=== PATIENT | male | born 1970 | race Two or more races ===

== ENCOUNTER → 2021-03-05 08:41 | Outpatient (BNVA) | payer OTHER, SELFPAY | PROVIDERS: PCP Internal Medicine; Visit Provider Hospitalist | DX: G47.33 Obstructive sleep apnea (adult) (pediatric) (principal); J45.40 Moderate persistent asthma, uncomplicated; F17.200 Nicotine dependence, unspecified, uncomplicated; Z71.6 Tobacco abuse counseling; Z79.899 Other long term (current) drug therapy | CPT/HCPCS: 99202 ==

== ENCOUNTER 2021-03-26 10:32 | Outpatient (REF) | payer OTHER, SELFPAY ==
--- NOTE | 2021-03-26 12:06 | PFT_ITS ---
Forced vital capacity is moderately reduced. FEV1 and [id number] are normal. MVV moderately reduced. Post bronchodilator therapy, there is no change. Total lung capacity and residual volume are slightly increased, probably due to technical reason. Diffusion capacity was not performed because the patient was unable to perform adequate maneuvers. CONCLUSION: There is no evidence of any significant obstructive airway disorder or restrictive disorder. No response to bronchodilator therapy. * There seems to be some technical issue Clinical correlation is recommended. Tacos Madison MD MSB/MODL / [id number] MTDD
== END 2021-03-26 10:33 | disposition home or self-care (01) ==
LOC: HO.RESP 10:32
PROVIDERS: PCP Internal Medicine; Visit Provider Hospitalist
DX: J45.40 Moderate persistent asthma, uncomplicated (principal); G47.33 Obstructive sleep apnea (adult) (pediatric); F17.210 Nicotine dependence, cigarettes, uncomplicated
CPT/HCPCS: 94010

== ENCOUNTER → 2021-03-31 10:44 | Outpatient (REF) | payer OTHER, SELFPAY | LOC: HO.SL 10:44 | PROVIDERS: PCP Internal Medicine; Visit Provider Hospitalist | DX: G47.33 Obstructive sleep apnea (adult) (pediatric) (principal); J45.40 Moderate persistent asthma, uncomplicated | CPT/HCPCS: 95806 ==

== ENCOUNTER → 2021-04-17 10:24 | Outpatient (BNVA) | payer OTHER, SELFPAY | PROVIDERS: PCP Internal Medicine; Visit Provider Hospitalist | DX: J45.40 Moderate persistent asthma, uncomplicated (principal); R40.0 Somnolence; G47.33 Obstructive sleep apnea (adult) (pediatric); R74.01 Elevation of levels of liver transaminase levels; E78.1 Pure hyperglyceridemia; E66.9 Obesity, unspecified; Z68.32 Body mass index [BMI] 32.0-32.9, adult; F17.210 Nicotine dependence, cigarettes, uncomplicated; F41.8 Other specified anxiety disorders | CPT/HCPCS: 99212 ==

== ENCOUNTER 2021-05-22 06:41 | Outpatient (REF) | payer OTHER, SELFPAY ==
[2021-05-22 12:24] LABS: Alanine Aminotransferase 46 U/L (0-40); Albumin Level 4.1 g/dL (3.5-5.0); Alkaline Phosphatase 58 U/L (39-117); Anion Gap 13 (12-20); Aspartate Amino Transferase 19 U/L (5-37); Bilirubin Total 0.5 mg/dL (0.0-1.0); Blood Urea Nitrogen 20 mg/dL (9-16); Calcium 9.3 mg/dL (8.4-10.2); Carbon Dioxide 25 mmol/L (22-29); Chloride 105 mmol/L (96-108); Cholesterol 169 mg/dL; Estimated Glomerular Filt Rate > 60; Glucose Fasting 120 mg/dL (60-99); HDL Cholesterol 35 mg/dL; LDL Cholesterol Calculated 95 mg/dl; Potassium 4.1 mmol/L (3.3-5.1); Sodium 139 mmol/L (135-145); Total Protein 7.3 g/dL (6.5-8.0); Triglycerides 197 mg/dL
== END 2021-05-22 06:42 | disposition home or self-care (01) ==
LOC: HO.HMGCLDS 06:41
PROVIDERS: PCP Internal Medicine; Visit Provider Internal Medicine
DX: E78.1 Pure hyperglyceridemia (principal); F41.8 Other specified anxiety disorders; J45.40 Moderate persistent asthma, uncomplicated; R74.8 Abnormal levels of other serum enzymes
CPT/HCPCS: 36415; 80053; 80061

== ENCOUNTER → 2022-04-09 14:32 | Outpatient (BNVA) | payer OTHER, SELFPAY | PROVIDERS: PCP Internal Medicine; Visit Provider Hospitalist | DX: J45.40 Moderate persistent asthma, uncomplicated (principal); G47.33 Obstructive sleep apnea (adult) (pediatric) | CPT/HCPCS: 99212 ==

== ENCOUNTER 2022-05-22 14:09 | Outpatient (REF) | payer OTHER, SELFPAY ==
--- NOTE | ~2022-05-22 | CT_ITS ---
EXAMINATION: CT CHEST SCREENING CLINICAL INFORMATION: Current smoker. 43 pack-year history. COMPARISON: None. TECHNIQUE: Multidetector volumetric CT imaging of the chest is performed without contrast using low dose technique. Additional 2D coronal and sagittal reformatted images and axial 3D maximum intensity projection (MIP) images are generated on the CT workstation. This CT examination was performed using dose optimization techniques as appropriate, variously including the following: *Automated exposure control *Adjustment of mA and/or kV according to patient size (this includes techniques or standardized protocols for targeted exams where dose is matched to indication/reason for exam; i.e. extremities or head) *Use of iterative reconstruction technique DLP: 57 mGy-cm FINDINGS: LUNGS: The lung volumes are low. There is elevation of the right hemidiaphragm. The lungs are clear. No endobronchial or endotracheal lesion. MEDIASTINUM: Small mediastinal lymph nodes. No enlarged lymph nodes. Normal heart size. No pericardial effusion. CORONARY ARTERY CALCIFICATION: None visualized on this study. PLEURA: There is no pleural effusion. No pleural mass or thickening. AXILLA: No lymphadenopathy. UPPER ABDOMEN: Diverticulosis of the colon. OSSEOUS STRUCTURES: Degenerative changes of the spine. CT/CT lung screening IMPRESSION: Unremarkable examination. ASSESSMENT: Lung-RADS category 1: Negative RECOMMENDATION: Annual low-dose chest CT follow-up recommended.
== END 2022-05-22 14:10 | disposition home or self-care (01) ==
LOC: HO.CT 14:09
PROVIDERS: Visit Provider Physician Assistant Medical
DX: Z12.2 Encounter for screening for malignant neoplasm of respiratory organs (principal); F17.210 Nicotine dependence, cigarettes, uncomplicated
CPT/HCPCS: 71271; G0296

== ENCOUNTER 2022-10-17 09:05 | Outpatient (REF) | payer OTHER, SELFPAY ==
[2022-10-17 12:02] LABS: Estimated Average Glucose 117 mg/dL; Hemoglobin A1c % 5.7 %
[2022-10-17 12:27] LABS: Alanine Aminotransferase 21 U/L (0-40); Albumin Level 4.3 g/dL (3.5-5.0); Alkaline Phosphatase 55 U/L (39-117); Anion Gap 13 (12-20); Aspartate Amino Transferase 13 U/L (5-37); Bilirubin Total 0.8 mg/dL (0.0-1.0); Blood Urea Nitrogen 21 mg/dL (9-16); Calcium 9.2 mg/dL (8.4-10.2); Carbon Dioxide 26 mmol/L (22-29); Chloride 107 mmol/L (96-108); Cholesterol 167 mg/dL; Estimated Glomerular Filt Rate > 60; Glucose Fasting 97 mg/dL (60-99); HDL Cholesterol 37 mg/dL; LDL Cholesterol Calculated 111 mg/dl; Sodium 142 mmol/L (135-145); Total Protein 6.8 g/dL (6.5-8.0); Triglycerides 99 mg/dL
== END 2022-10-17 09:06 | disposition home or self-care (01) ==
LOC: HO.HMGCLDS 09:05
PROVIDERS: PCP Internal Medicine; Visit Provider Internal Medicine
DX: E78.1 Pure hyperglyceridemia (principal); F41.8 Other specified anxiety disorders; G47.33 Obstructive sleep apnea (adult) (pediatric); J45.40 Moderate persistent asthma, uncomplicated; R73.01 Impaired fasting glucose
CPT/HCPCS: 36415; 80053; 80061; 83036

== ENCOUNTER → 2022-12-09 15:06 | Outpatient (BNVA) | payer OTHER, SELFPAY | PROVIDERS: PCP Internal Medicine; Visit Provider Nurse Practitioner | DX: Z01.818 Encounter for other preprocedural examination (principal); K59.00 Constipation, unspecified; J45.40 Moderate persistent asthma, uncomplicated; G47.33 Obstructive sleep apnea (adult) (pediatric); F17.210 Nicotine dependence, cigarettes, uncomplicated | CPT/HCPCS: 99202 ==

== ENCOUNTER → 2022-12-25 15:18 | Outpatient (BNVA) | payer OTHER, SELFPAY | PROVIDERS: PCP Internal Medicine; Visit Provider Hospitalist | DX: J45.40 Moderate persistent asthma, uncomplicated (principal); G47.33 Obstructive sleep apnea (adult) (pediatric) | CPT/HCPCS: 99212 ==

== ENCOUNTER → 2023-01-06 14:44 | Outpatient (BNVA) | payer OTHER, SELFPAY | PROVIDERS: PCP Internal Medicine; Visit Provider Nurse Practitioner | DX: K59.00 Constipation, unspecified (principal) | CPT/HCPCS: 99212 ==

== ENCOUNTER 2023-02-05 14:54 | Outpatient (AMB) | payer OTHER, SELFPAY ==
--- NOTE | 2023-02-05 14:55 | MHC.OFFVIS ---
Intake Vital Signs 02/05/23 14:57 Height 5 ft 6 in Weight 185 lb 10.067 oz BMI 30.0 BP 120/78 Blood Pressure Location Lt brachial Position Sitting Pulse 69 Intake Visit Reasons: 4 weeks follow up constipation Intake Note: Patient presents to in office visit today as a 4 weeks follow up. CC: Patient report he has been doing better. Denies other GI symptoms. Auto Specialty Services Manager Required: Yes Auto Specialty Services Manager Name: Accompanied by: Spouse Allergies No Known Allergies [No Known Allergies*] Allergy (Verified 02/05/23 15:01) HPI 4 weeks follow up constipation HPI Details Assessment & Plan (1) Pre-op examination: ?Code(s): Z01.818 - Encounter for other preprocedural examination ?Plan: [place] # interprets per pt request This is his first colonoscopy. He suffers CIC and has a lot of flatulence , but no upper GI problems. His asthma is well controlled and he has ERMIAS, he has a transient cardiac murmur but no other problems. He has not experience with anesthesia or sedation. No ID problems. There is no known FHX of crc or polyps, but he does not see much of his family. (2) Constipation: ?Code(s): K59.00 - Constipation, unspecified (3) Moderate persistent asthma: ?Code(s): J45.40 - Moderate persistent asthma, uncomplicated ?Qualifiers: ?Asthma complication type:?uncomplicated? Qualified Code(s):?J45.40 - Moderate persistent asthma, uncomplicated (4) ERMIAS (obstructive sleep apnea): ?Code(s): G47.33 - Obstructive sleep apnea (adult) (pediatric) (5) Nicotine dependence, cigarettes, uncomplicated: ?Comment: (currenr smoker - onset 16yo, 1/2-3/4ppd x 35yrs, 20pyh) ?Code(s): F17.210 - Nicotine dependence, cigarettes, uncomplicated ? ? ? Medications: New peg 3350-electroly osman [id number] -5.86 gram (Golyt anthony) ?? until feca l effluent is wil r; do not exceed a total volume of 2 ,000 mL 240 mL? PO Q10M 1 day 4,000 mL 0RF Z12.11 - Encounter for screening for malignant neoplas m of colon ? sennosides (senna) 17.2 mg (2 x 8.6 m g) PO BEDTIME 30 d ays 60 caps 3RF co nstipation K59.00 - Constipat ion, unspe COLONOSCOPY Not yet scheduled BIOPSY TODAY'S VISIT [place] # interprets per pt request He feels that the 2 tabs a center now controlling his constipation well and he does not need any further measures. He is happy with this for his GI regimen. This is also controlled his flatulence well. They have not yet been contacted schedule a colonoscopy but this is in the normal scheduling range. Return office visit in 6 months and of course again after the colonoscopy. [facility] Medical History Depression with anxiety Elevated liver enzymes Hypertriglyceridemia Impaired fasting glucose Intermittent left-sided chest pain Moderate persistent asthma Nicotine dependence, cigarettes, uncomplicated ERMIAS (obstructive sleep apnea) Surgical History No pertinent past surgical history Family History Sister Mental health disorder Social History Housing: Apartment Patient Tobacco Use Status: Current everyday Tobacco user Tobacco use type: Cigarette Years Smoked: (onset 16yo, 1/2-3/4ppd x 35yrs, 20pyh) e-Cigarette/Vaping Use: Never Used service: No Current occupational status: employed 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 Cognitive needs: No Hearing needs: No Vision needs: No Review of Systems Const Denies fatigue, Denies fever(s), Denies night sweats, Denies poor appetite and Denies weight loss ENT Reports Normal hearing present, Denies dental pain, Denies dysphagia, Denies hearing loss, Denies mouth pain, Denies odynophagia, Denies throat swelling, Denies tongue swelling and Reports other (Dentition adequate) Card Reports no additional complaints Resp Reports no additional complaints GI Denies abdominal pain, Denies melena, Reports bloating, Denies hematochezia, Reports constipation, Denies GI cramping, Denies dysphagia, Denies excessive flatus, Denies early satiety, Denies heartburn, Denies diarrhea, Denies nausea, Denies odynophagia, Denies vomiting and Denies hematemesis Skin/Breast Denies pruritus, Denies lesions, Denies rash and Denies jaundice Neuro Reports Normal hearing present and Denies Abnormal speech present Endo Denies fatigue Aller/Immun Denies throat swelling and Denies tongue swelling Physical Exam Vital Signs: Last Vital Signs Pulse 69 02/05/23 14:57 BP 120/78 02/05/23 14:57 BMI result Body Mass Index 30.0 Const General: cooperative, no acute distress, well developed and well groomed Nutritional Appearance: well nourished and obese centrally obese Orientation/consciousness: oriented to person, oriented to place and oriented to time Limitations: language barrier HEENT Head: Yes normocephalic and Yes atraumatic Eyes General: appearance normal, both eyes and all related structures Pupils: Equal, round and reactive pupils present Neck Neck: Yes normal visual inspection and Yes no lymphadenopathy Thyroid: Thyroid normal Resp Effort & Inspection: normal respiratory effort and able to speak in complete sentences Auscultation: clear to auscultation bilaterally Cardio Rate: regular rate Rhythm: regular rhythm Heart sounds: Normal, physiologic split S2 sound present Peripheral pulses: radial pulses present and posterior tibial pulses present GI Inspection: No distended, No Abdominal panniculus present and Yes obesity Palpation (GI): Soft to palpation, nontender, no guarding, not rigid and No hepatosplenomegaly present Percussion: Yes normal to percussion Auscultation: normal bowel sounds Rectal Exam - Male: Yes deferred Skin General skin exam: no rashes or lesions noted, turgor normal, skin not dry, no jaundice, No spider nevi and no striae Rashes: no rashes Nails: normal Neuro General: oriented to person, oriented to place and oriented to time Cranial nerves: Yes Equal, round and reactive pupils present and Yes Normal hearing present Speech: No Abnormal speech present Extrem General: Yes normal to inspection, No clubbing, No cyanosis and No edema Psych Appearance: grossly normal and well kempt Mental Status: mental status grossly normal Speech and movement: Normal speech and movement present Affect: normal affect Attitude: cooperative Thought process: Normal thought process present and not confabulating Thought content: Normal thought content present Insight: Limited insight present (Psych) Judgement: Limited judgement present (Psych) Assessment & Plan Assessment & Plan (1) Constipation: Code(s): K59.00 - Constipation, unspecified Plan: [place] # interprets per pt request He feels that the 2 tabs a center now controlling his constipation well and he does not need any further measures. He is happy with this for his GI regimen. This is also controlled his flatulence well. They have not yet been contacted schedule a colonoscopy but this is in the normal scheduling range. Return office visit in 6 months and of course again after the colonoscopy. COLONOSCOPY Not yet scheduled BIOPSY Medications: Refilled sennosides (senna) 17.2 mg (2 x 8.6 mg) PO BEDTIME 30 days 60 caps 6RF constipation K59.00 - Constipation, unspecified Quality Reporting (2019) Adult ([facility] 138/08/26/68) Smoking risk assessment performed?: Yes Patient Tobacco Use Status: Current everyday Tobacco user Coding Level of Care Code Est Pt Level 3 (75110) Diagnoses Constipation K59.00
[2023-02-05 14:57] VITALS: BP 120/78; PULSE 69
== END 2023-02-05 15:09 | disposition home or self-care (01) ==
PROVIDERS: PCP Internal Medicine; Visit Provider Nurse Practitioner
DX: K59.00 Constipation, unspecified (principal)
CPT/HCPCS: 99213

== ENCOUNTER → 2023-02-05 14:54 | Outpatient (BNVA) | payer OTHER, SELFPAY | PROVIDERS: PCP Internal Medicine; Visit Provider Nurse Practitioner | DX: K59.00 Constipation, unspecified (principal) | CPT/HCPCS: 99212 ==

== ENCOUNTER 2023-08-10 14:32 | Outpatient (AMB) | payer OTHER, SELFPAY ==
--- NOTE | 2023-08-10 14:35 | A.OFFVIS_ITS ---
Intake Vital Signs 08/10/23 14:36 Height 5 ft 6 in Weight 188 lb 11.451 oz BMI 30.5 BP 131/80 Blood Pressure Location Lt brachial Position Sitting Pulse 72 Intake Visit Reasons: 6 month fu Intake Note: Patient presents to in office visit today in 6 months follow up of constipation. CC: Patient states that he still waiting to be scheduled for colonoscopy. Denies other GI symptoms today. Python Web Developer Required: No Accompanied by: Spouse Allergies No Known Allergies [No Known Allergies*] Allergy (Verified 08/10/23 14:39) HPI 6 month fu HPI Details Assessment & Plan (1) Constipation: Code(s): K59.00 - Constipation, unspecified Plan: [place] # interprets per pt request He feels that the 2 tabs a center now controlling his constipation well and he does not need any further measures. He is happy with this for his GI regimen. This is also controlled his flatulence well. They have not yet been contacted schedule a colonoscopy but this is in the normal scheduling range. Return office visit in 6 months and of course again after the colonoscopy. Medications: Refilled sennosides (senna) 17.2 mg (2 x 8.6 m g) PO BEDTIME 30 d ays 60 caps 6RF co nstipation K59.00 - Constipat ion, unspecified COLONOSCOPY Not yet scheduled it was ordered 12/2022? Did note get sent BIOPSY TODAY'S VISIT [place] # interprets per pt request They have not yet heard re: colonoscopy. I walk them down to our schedulers office that this could be taking care of promptly. He continues to do well on the senna and satisfied with the GI regimen. Return office visit in 6 months and of course after the colonoscopy. [facility] Medical History Pre-op examination Impaired fasting glucose Nicotine dependence, cigarettes, uncomplicated Elevated liver enzymes Moderate persistent asthma Hypertriglyceridemia Depression with anxiety ERMIAS (obstructive sleep apnea) Intermittent left-sided chest pain Surgical History No pertinent past surgical history Family History Sister Mental health disorder Social History Housing: Apartment Patient Tobacco Use Status: Current everyday Tobacco user Tobacco use type: Cigarette Years Smoked: (onset 16yo, 1/2-3/4ppd x 35yrs, 20pyh) e-Cigarette/Vaping Use: Never Used service: No Current occupational status: employed 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 Cognitive needs: No Hearing needs: No Vision needs: No Review of Systems Const Denies fatigue, Denies fever(s), Denies night sweats, Denies poor appetite and Denies weight loss ENT Reports Normal hearing present, Denies dental pain, Denies dysphagia, Denies hearing loss, Denies mouth pain, Denies odynophagia, Denies throat swelling, Denies tongue swelling and Reports other (Dentition adequate) Card Reports no additional complaints Resp Reports no additional complaints GI Details: Denies abdominal pain, Denies melena, Denies bloating, Denies hematochezia, Reports constipation, Denies GI cramping, Denies dysphagia, Denies excessive flatus, Denies early satiety, Denies heartburn, Denies diarrhea, Denies nausea, Denies odynophagia, Denies vomiting and Denies hematemesis Skin/Breast Denies pruritus, Denies lesions, Denies rash and Denies jaundice Neuro Reports Normal hearing present and Denies Abnormal speech present Endo Denies fatigue Aller/Immun Denies throat swelling and Denies tongue swelling Physical Exam Vital Signs: Last Vital Signs Pulse 72 08/10/23 14:36 BP 131/80 08/10/23 14:36 BMI result Body Mass Index 30.5 Const General: cooperative, no acute distress, well developed and well groomed Nutritional Appearance: well nourished and obese Orientation/consciousness: oriented to person, oriented to place and oriented to time Limitations: language barrier HEENT Head: Yes normocephalic and Yes atraumatic Eyes General: appearance normal, both eyes and all related structures Pupils: Equal, round and reactive pupils present Neck Neck: Yes normal visual inspection and Yes no lymphadenopathy Thyroid: Thyroid normal Resp Effort & Inspection: normal respiratory effort and able to speak in complete sentences Auscultation: clear to auscultation bilaterally Cardio Rate: regular rate Rhythm: regular rhythm Heart sounds: Normal, physiologic split S2 sound present Peripheral pulses: radial pulses present and posterior tibial pulses present GI Inspection: No distended, No Abdominal panniculus present and Yes obesity Palpation (GI): Soft to palpation, nontender, no guarding, not rigid and No hepatosplenomegaly present Percussion: Yes normal to percussion Auscultation: normal bowel sounds Rectal Exam - Male: Yes deferred Skin General skin exam: no rashes or lesions noted, turgor normal, skin not dry, no jaundice, No spider nevi and no striae Rashes: no rashes Nails: normal Neuro General: oriented to person, oriented to place and oriented to time Cranial nerves: Yes Equal, round and reactive pupils present and Yes Normal hearing present Speech: No Abnormal speech present Extrem General: Yes normal to inspection, No clubbing, No cyanosis and No edema Psych Appearance: grossly normal and well kempt Mental Status: mental status grossly normal Speech and movement: Normal speech and movement present Affect: normal affect Attitude: cooperative Thought process: Normal thought process present and not confabulating Thought content: Normal thought content present Insight: Fair insight present (Psych) and Limited insight present (Psych) Judgement: Fair judgement present (Psych) and Limited judgement present (Psych) Assessment & Plan Assessment & Plan (1) Constipation: Code(s): K59.00 - Constipation, unspecified Plan [place] # interprets per pt request They have not yet heard re: colonoscopy. I walk them down to our schedulers office that this could be taking care of promptly. He continues to do well on the senna and satisfied with the GI regimen. Return office visit in 6 months and of course after the colonoscopy. COLONOSCOPY Not yet scheduled it was ordered 12/2022? Did note get sent BIOPSY Medications: Refilled sennosides (senna) 17.2 mg (2 x 8.6 mg) PO BEDTIME 30 days 60 caps 6RF constipation K59.00 - Constipation, unspecified Quality Reporting (2019) Adult ([facility] 138/08/26/68) Smoking risk assessment performed?: Yes Patient Tobacco Use Status: Current everyday Tobacco user Coding Level of Care Code Est Pt Level 3 (13612) Diagnoses Constipation K59.00
[2023-08-10 14:36] VITALS: BP 131/80; PULSE 72; BMI 30.5
== END 2023-08-10 15:00 | disposition home or self-care (01) ==
PROVIDERS: PCP Internal Medicine; Visit Provider Nurse Practitioner
DX: K59.00 Constipation, unspecified (principal)
CPT/HCPCS: 99213

== ENCOUNTER → 2023-08-10 14:32 | Outpatient (BNVA) | payer OTHER, SELFPAY | PROVIDERS: PCP Internal Medicine; Visit Provider Nurse Practitioner | DX: K59.00 Constipation, unspecified (principal) | CPT/HCPCS: 99212 ==

== ENCOUNTER 2023-11-22 13:14 | Outpatient (AMB) | payer OTHER, SELFPAY ==
[2023-11-22 13:22] VITALS: BP 126/70; PULSE 70; O2SAT 96; BMI 29.1
--- NOTE | 2023-11-22 13:22 | MHC.PC.OV ---
Vital Signs 11/22/23 13:22 Height 5 ft 6 in Weight 180 lb 2 oz BMI 29.1 BP 126/70 Blood Pressure Location Rt brachial Position Sitting Pulse 70 Pulse Source Pulse Oximeter Pulse Oximetry (%) 96 Oxygen Delivery Method Room Air Intake Visit Reasons: PE Intake Note: Pt is here today for his annual physical. Last flu shot 05/23/23 Pt has not done colonoscopy. Allergies No Known Allergies [No Known Allergies*] Allergy (Verified 11/22/23 14:24) Medication List - Last Reconciled 11/22/23 by Sharon Schmitt MD escitalopram oxalate 10 mg PO DAILY sennosides (senna) 17.2 mg (2 x 8.6 mg) PO BEDTIME 30 days Tobacco use date assessed: 11/22/23 Dental Screening Dental Screen Date: 11/22/23 Did you have a dental visit in the last 12 months?: No Did you have a dental problem in the last 6 months where you did not have access to dental care?: No Was dental information given to patient?: Patient has dentist HPI PE HPI Details 52-year-old male with history of hypertriglyceridemia, moderate persistent asthma, obstructive sleep apnea on CPAP, depression anxiety controlled on escitalopram 10 mg daily, here today for his physical exam. Continues to smoke cigarettes, with no desire to quit at present time. He was being seen by Pulmonary Dr. Pires and prescribed Symbicort, but patient has not been using it, stating that he does not need it. He is overdue for a screening colonoscopy as well as his yearly lung cancer screening, last screening was done in 2021. [facility] Medical History (Updated 11/22/23 @ 14:25 by Sharon Schmitt MD) Impaired fasting glucose Nicotine dependence, cigarettes, uncomplicated Elevated liver enzymes Moderate persistent asthma Hypertriglyceridemia Depression with anxiety ERMIAS (obstructive sleep apnea) Surgical History No pertinent past surgical history Family History Sister Mental health disorder Social History Housing: Apartment Patient Tobacco Use Status: Current everyday Tobacco user Tobacco use type: Cigarette Years Smoked: (onset 16yo, 1/2-3/4ppd x 35yrs, 20pyh) e-Cigarette/Vaping Use: Never Used service: No Current occupational status: employed 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 1. Little interest or pleasure in doing things: not at all 2. Feeling down, depressed, or hopeless: several days 3. Trouble falling or staying asleep, or sleeping too much: not at all 4. Feeling tired or having little energy: several days 5. Poor appetite or overeating: not at all 6. Feeling bad about yourself - or that you are a failure or have let yourself or your family down: not at all 7. Trouble concentrating on things, such as reading the newspaper or watching television: not at all 8. Moving or speaking so slowly that other people could have noticed. Or the opposite - being so fidgety or restless that you have been moving around a lot more than usual: not at all 9. Thoughts that you would be better off or of hurting yourself in some way: not at all Total score: 2 Depression Screening Interpretation: Positive (Currently on escitalopram, requesting referral for counseling) Depression Screening Follow-up: Existing condition, In treatment and Community Mental Health Worker F/U Depression Screening Done: Yes 09398 - PHQ-9 Billing: Yes Source: Developed by Drs. Ravinder Perry, Zeinab Otero, Ac Freitas and colleagues, with an educational judah from [employer]. Thrive Questionnaire Date Thrive assessed: 11/22/23 I am a: Patient What is your living situation today?: I have a steady place to live Within the past 12 months, did the food you bought not last and you didn't have the money to get more?: Never true Within the past 12 months, did you worry whether your food would run out before you got money to buy more?: Never true Do you have trouble paying for medicines?: No Do you have trouble getting transportation to medical appointments?: No Do you have trouble paying your heating and electricity bill?: No Do you have trouble taking care of your child, family member or friend?: No Do you have trouble with day-to-day activities such as bathing, preparing meals, shopping, managing finances, etc.?: No Are you currently unemployed and looking for a job?: No Are you interested in more education?: No THRIVE Score: 0 AUDIT C Alcohol Use Questionnaire (AUDIT-C) 1. How often do you have a drink containing alcohol?: 2-4 times a month (An occasional 6 pack during the weekend) 2. How many drinks containing alcohol do you have on a typical day when you are drinking?: 5 or 6 3. How often do you have six or more drinks on one occasion?: Never Total Score: 4 Score Reviewed/Action Taken: Yes (Patient counseled to cut back on his alcohol intake) ANNITA-7 AMB Questionnaire ANNITA-7 Date ANNITA - 7 assessed: 11/22/23 Feeling nervous, anxious, or on edge: 0 = Not at all Not being able to stop or control worryin = Not at all Worrying too much about different things: 1 = Several days Trouble relaxin = Not at all Being so restless that it is hard to sit still: 0 = Not at all Becoming easily annoyed or irritable: 0 = Not at all Feeling afraid as if something awful might happen: 0 = Not at all Total ANNITA-7 score (0-4 normal; 5-9 mild; 10-14 moderate; 15-21 severe): 1 Source: Developed by Drs. Ravinder Perry, Zienab Otero, Ac Freitas and colleagues, with an educational judah from [employer]. ANNITA-7 Assessment Billing ANNITA-7 Assessment Tool: ANNITA-7 Assessment 60585 Review of Systems Const Denies fever(s), Denies night sweats, Denies poor appetite and Reports weight loss Eyes Denies change in vision ENT Denies dysphagia, Denies hearing loss, Denies mouth pain, Denies odynophagia, Denies throat swelling and Denies tongue swelling Card Denies chest pain, Denies chest pain with activity, Denies rapid heart rate, Denies irregular heart rhythm, Denies lightheadedness and Denies dyspnea Resp Denies cough and Denies dyspnea GI Details: Denies abdominal pain, Denies melena, Denies bloating, Denies hematochezia, Reports constipation, Denies GI cramping, Denies dysphagia, Denies excessive flatus, Denies early satiety, Denies heartburn, Denies diarrhea, Denies nausea, Denies odynophagia, Denies vomiting and Denies hematemesis Reports no additional complaints Musc Denies arthralgias, Denies joint swelling and Reports stiffness Skin/Breast Denies pruritus, Denies lesions, Denies rash and Denies jaundice Neuro Reports no additional complaints Psych Reports as per HPI Endo Reports no additional complaints Kevin/Lymph Reports no additional complaints Aller/Immun Denies throat swelling and Denies tongue swelling Physical exam (Primary Care) Vital Signs: Last Vital Signs Pulse 70 11/22/23 13:22 BP 126/70 11/22/23 13:22 Pulse Ox 96 11/22/23 13:22 Oxygen Delivery Method Room Air 11/22/23 13:22 BMI result Body Mass Index 29.1 BMI Assessment/Plan discussion: High BMI High, discussed plan: lifestyle, weight reduction, dietary and physical activity Tobacco/Smoking Status: Tobacco use Status Tobacco use date assessed 11/22/23 11/22/23 13:26 Patient Tobacco Use Status Current everyday Tobacco 11/22/23 13:26 Tobacco use type Cigarette 11/22/23 13:26 e-Cigarette/Vaping Use Never Used 11/22/23 13:26 PHQ-9: PHQ-9 Score PHQ-9: Total score 2 11/22/23 15:59 Depression Screening Interpretation: Positive (Currently on escitalopram, requesting referral for counseling) Depression Screening Follow-up: Existing condition, In treatment and Community Mental Health Worker F/U Thrive Assessment: Date of Thrive Assessment Date Thrive assessed 11/22/23 11/22/23 14:44 Const General: cooperative, comfortable and no acute distress Nutritional Appearance: obese Orientation/consciousness: patient oriented x3 Limitations: no limitations HENMT Ears: hearing grossly normal bilaterally General nose exam: Normal external nose present Mouth: Normal oral and palatal mucosa present and moist mucous membranes Eyes General: appearance normal, both eyes and all related structures Neck Neck: Yes full ROM, Yes no lymphadenopathy and Yes supple Resp Auscultation: clear to auscultation bilaterally Cardio Rate: regular rate Rhythm: regular rhythm Heart sounds: S1 normal heart sound present and S2 normal heart sound present GI Inspection: Yes obesity Palpation (GI): Soft to palpation, nontender, no guarding and no masses General: Yes no CVA tenderness Male General Exam: Yes normal external exam, No hernia, No inguinal lymphadenopathy and No Genital lesions present Penis: normal penis, uncircumcised and No Genital lesions present Meatus: meatus normal Scrotum: scrotum normal Testes: no testicular mass and no testicular swelling Back/Spine/Pelvis Back: no CVA tenderness and No back tenderness Skin Other: Skin tags present on right upper eyelid and left lower lid Neuro General: patient oriented x3, gait normal, moves all extremities and no focal motor deficits Extrem General: Yes full ROM, Yes no joint enlargement, Yes no pedal edema, Yes no calf tenderness and Yes normal gait Psych Appearance: grossly normal Mental Status: mental status grossly normal Speech and movement: Normal speech and movement present Affect: normal affect Attitude: cooperative Thought process: Normal thought process present Thought content: Normal thought content present Assessment and Plan Assessment & Plan (1) Annual visit for general adult medical examination with abnormal findings: Code(s): Z00.01 - Encounter for general adult medical examination with abnormal findings Plan: Will check appropriate labs. Recommended dental visit every 6 months and regular eye exams, at least every 2 years, advised to check with his insurance who is covered under his plan. Take adequate calcium in diet and vitamin-D 3 at 2000 IU per cap once a day, in addition to weight-bearing exercises to help maintain good muscle tone and weight control. Instructed to do self testicular exam to check for any mass. Referred to GI Clinic for screening colonoscopy. Has had COVID vaccines in the past but does not want to get the booster, reminded to get his yearly flu shot, up-to-date with his Tdap. (2) Encounter for screening for malignant neoplasm of colon: Code(s): Z12.11 - Encounter for screening for malignant neoplasm of colon Plan: GI consult obtained for colon cancer screen (3) Hypertriglyceridemia: Code(s): E78.1 - Pure hyperglyceridemia Plan: fasting lipid profile ordered reinforced adherence to low-cholesterol diet and regular exercise, at least 30 minutes 3 to 4 times a week. Advised patient to make healthy food choices, eat more fruits, vegetables, whole grains, wild caught fish and low-fat dairy. Limit amount of meat and fried or fatty food products, as well as processed foods and fast foods. (4) Elevated liver enzymes: Code(s): R74.8 - Abnormal levels of other serum enzymes Plan: Comprehensive metabolic panel ordered, advised to cut back on his alcohol intake (5) Impaired fasting glucose: Code(s): R73.01 - Impaired fasting glucose Plan: Your fasting blood sugars were elevated above 100 mg/dL. Impaired glucose metabolism increases the risk for developing diabetes mellitus type 2, as well as heart attack and stroke later on. Lifestyle changes at just weight loss, healthy eating habits, and regular exercise are important, and can prevent the progression to diabetes (6) Nicotine dependence, cigarettes, uncomplicated: Comment: (cory smoker - onset 16yo, 1/2-3/4ppd x 35yrs, 20pyh) Code(s): F17.210 - Nicotine dependence, cigarettes, uncomplicated Plan: Patient strongly advised to stop smoking, as smoking damages blood vessels, degenerative of joints and spine, damage to lungs and heart., predisposes to developing certain cancers like lung, breast, bladder, colon. Recommended to try decreasing cigarette use by 1-2 cigarettes a day. Advised to monitor what triggers are for smoking so that this can be discussed on the next office visit. We can discuss different options to quit smoking when ready. Referred to thoracic surgery for his yearly lung cancer screening (7) Encounter for screening for malignant neoplasm of lung: Code(s): Z12.2 - Encounter for screening for malignant neoplasm of respiratory organs Plan: Referred to thoracic surgery for his yearly lung cancer screen (8) Moderate persistent asthma: Code(s): J45.40 - Moderate persistent asthma, uncomplicated Qualifiers: Asthma complication type: uncomplicated Qualified Code(s): J45.40 - Moderate persistent asthma, uncomplicated Plan: Patient does not use any inhalers, stating he does not need at present time. Strongly encouraged to quit smoking (9) ERMIAS (obstructive sleep apnea): Code(s): G47.33 - Obstructive sleep apnea (adult) (pediatric) Plan: Continued weight loss recommended. (10) Depression with anxiety: Code(s): F41.8 - Other specified anxiety disorders Plan: Continue escitalopram 10 mg daily referral to Megan for assistance in getting patient to be seen by a Swedish-speaking therapist per his request Orders: Orders Lipid Panel 11/22/23 E78.1 - Pure hyperglyceridemia, R73.01 - Impaired fasting glucose, R74.8 - Abnormal levels of other serum enzymes, Z00.01 - Encounter for general adult medical examination with abnormal findings Comprehensive [place]. Panel Fast 11/22/23 E78.1 - Pure hyperglyceridemia, R73.01 - Impaired fasting glucose, R74.8 - Abnormal levels of other serum enzymes, Z00.01 - Encounter for general adult medical examination with abnormal findings Complete Blood Count Auto Diff 11/22/23 E78.1 - Pure hyperglyceridemia, R73.01 - Impaired fasting glucose, R74.8 - Abnormal levels of other serum enzymes, Z00.01 - Encounter for general adult medical examination with abnormal findings Vitamin D 25-OH Total 11/22/23 E78.1 - Pure hyperglyceridemia, R73.01 - Impaired fasting glucose, R74.8 - Abnormal levels of other serum enzymes, Z00.01 - Encounter for general adult medical examination with abnormal findings Referrals Gastroenterology Referral Z12.11 - Encounter for screening for malignant neoplasm of colon Thoracic/General Surgery Referral F17.210 - Nicotine dependence, cigarettes, uncomplicated, Z12.2 - Encounter for screening for malignant neoplasm of respiratory organs Coding Level of Care Code Est Pt Prev Care 40-64y(32239) Diagnoses Annual visit for general adult medical examination with abnormal findings Z00.01 Encounter for screening for malignant neoplasm of colon Z12.11 Hypertriglyceridemia E78.1 Elevated liver enzymes R74.8 Impaired fasting glucose R73.01 Nicotine dependence, cigarettes, uncomplicated F17.210 Encounter for screening for malignant neoplasm of lung Z12.2 Moderate persistent asthma without complication J45.40 Asthma complication type: uncomplicated ERMIAS (obstructive sleep apnea) G47.33 Depression with anxiety F41.8 Additional Codes ANNITA-7 Assessment Billing - ANNITA-7 Assessment Tool: ANNITA-7 Assessment 71208 ([id number])
== END 2023-11-22 15:14 | disposition home or self-care (01) ==
PROVIDERS: PCP Internal Medicine; Visit Provider Internal Medicine
DX: Z00.00 Encounter for general adult medical examination without abnormal findings (principal); Z12.11 Encounter for screening for malignant neoplasm of colon; E78.1 Pure hyperglyceridemia; R74.8 Abnormal levels of other serum enzymes; R73.01 Impaired fasting glucose; F17.210 Nicotine dependence, cigarettes, uncomplicated; Z12.2 Encounter for screening for malignant neoplasm of respiratory organs; J45.40 Moderate persistent asthma, uncomplicated; G47.33 Obstructive sleep apnea (adult) (pediatric); F41.8 Other specified anxiety disorders
CPT/HCPCS: 99396

== ENCOUNTER 2023-11-22 14:29 | Outpatient (REF) | payer OTHER, SELFPAY ==
[2023-11-22 16:30] LABS: MANUAL DIFF FLAG NO
[2023-11-22 16:36] LABS: Basophils Percent Auto 0.4 % (0-2); Eosinophils Absolute Auto 0.1 X10*3/uL (0.0-0.4); Eosinophils Percent Auto 0.7 % (0-4); Hematocrit 43.4 % (42.0-52.0); Hemoglobin 14.4 g/dl (14.0-18.0); Imm Gran Abs Auto 0.02 X10*3/uL (0.00-0.03); Imm Gran Pct Auto 0.3 % (0.0-0.4); Lymphocytes Absolute Auto 2.8 X10*3/uL (1.2-4.9); Lymphocytes Percent Auto 38.9 % (20-40); Mean Corpuscular HGB Conc 33.2 g/dl (31.0-36.0); Mean Corpuscular Hemoglobin 29.6 pg (27.0-33.0); Mean Corpuscular Volume 89.1 fL (80.0-98.0); Monocytes Absolute Auto 0.4 X10*3/uL (0.1-1.2); Monocytes Percent Auto 5.8 % (2-11); Neutrophils Absolute Auto 3.9 x10*3/uL (2.0-8.3); Neutrophils Percent Auto 53.9 % (45-73); Platelet Count 221 X10*3/uL (160-400); Red Blood Count 4.87 X10*6/uL (4.60-5.80); Red Cell Distribution Width 13.3 % (11.0-16.0); White Blood Count 7.2 X10*3/uL (4.8-10.8)
[2023-11-22 17:16] LABS: Alanine Aminotransferase 19 U/L (0-40); Albumin Level 4.3 g/dL (3.5-5.0); Alkaline Phosphatase 59 U/L (39-117); Anion Gap 12 (12-20); Aspartate Amino Transferase 14 U/L (5-37); Bilirubin Total 0.7 mg/dL (0.0-1.0); Blood Urea Nitrogen 13 mg/dL (9-16); Calcium 9.6 mg/dL (8.4-10.2); Carbon Dioxide 29 mmol/L (22-29); Chloride 105 mmol/L (96-108); Cholesterol 175 mg/dL (<200); Estimated Glomerular Filt Rate > 60; Glucose Fasting 85 mg/dL (60-99); HDL Cholesterol 41 mg/dL (>40); LDL Cholesterol Calculated 111 mg/dL (<100); Potassium 3.7 mmol/L (3.3-5.1); Sodium 142 mmol/L (135-145); Total Protein 7.3 g/dL (6.5-8.0); Triglycerides 118 mg/dL (<150)
[2023-11-22 17:22] LABS: Vitamin D 25-OH Total 45.1 ng/mL (>30)
== END 2023-11-22 14:30 | disposition home or self-care (01) ==
LOC: HO.HMGCLDS 14:29
PROVIDERS: PCP Internal Medicine; Visit Provider Internal Medicine
DX: Z00.01 Encounter for general adult medical examination with abnormal findings (principal); E78.1 Pure hyperglyceridemia; R73.01 Impaired fasting glucose; R74.8 Abnormal levels of other serum enzymes
CPT/HCPCS: 36415; 80053; 80061; 82306; 85025

== ENCOUNTER 2023-12-07 11:55 | Outpatient (AMB) | payer OTHER, SELFPAY ==
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
--- NOTE | 2023-12-07 12:11 | A.OFFVIS_ITS ---
Intake Visit Reasons: r/s from 11/08 [employer] Required: Yes Accompanied by: Self / Same As Patient Allergies No Known Allergies [No Known Allergies*] Allergy (Verified 12/07/23 12:10) PFSH Medical History (Updated 11/22/23 @ 14:25 by Sharon Schmitt MD) Impaired fasting glucose Nicotine dependence, cigarettes, uncomplicated Elevated liver enzymes Moderate persistent asthma Hypertriglyceridemia Depression with anxiety ERMIAS (obstructive sleep apnea) Surgical History No pertinent past surgical history Family History Sister Mental health disorder Social History Housing: Apartment Patient Tobacco Use Status: Current everyday Tobacco user Tobacco use type: Cigarette Years Smoked: (onset 16yo, 1/2-3/4ppd x 35yrs, 20pyh) e-Cigarette/Vaping Use: Never Used service: No Current occupational status: employed 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
[2023-12-07 12:18] VITALS: BP 113/61; PULSE 72; BMI 28.7
== END 2023-12-07 12:34 | disposition home or self-care (01) ==
PROVIDERS: PCP Internal Medicine; Visit Provider Nurse Practitioner
DX: Z01.818 Encounter for other preprocedural examination (principal); G47.33 Obstructive sleep apnea (adult) (pediatric); J45.909 Unspecified asthma, uncomplicated
CPT/HCPCS: 99214

== ENCOUNTER → 2023-12-07 11:55 | Outpatient (BNVA) | payer OTHER, SELFPAY | PROVIDERS: PCP Internal Medicine; Visit Provider Nurse Practitioner | DX: Z01.818 Encounter for other preprocedural examination (principal); G47.33 Obstructive sleep apnea (adult) (pediatric); J45.909 Unspecified asthma, uncomplicated | CPT/HCPCS: 99212 ==

== ENCOUNTER 2024-02-25 09:26 | Outpatient (AMB) | payer OTHER, SELFPAY ==
--- NOTE | 2024-02-25 09:44 | MHC.OFFWIV ---
Intake Vital Signs 02/25/24 09:45 Height 5 ft 6 in Weight 183 lb BMI 29.5 BP 122/76 Blood Pressure Location Lt brachial Position Sitting Pulse 73 Pulse Source Pulse Oximeter Temp 98.2 F Temp Source Oral Pulse Oximetry (%) 97 Oxygen Delivery Method Room Air Intake Visit Reasons: EP poison shanna Intake Note: pt c/o poison shanna. Started 3 days ago. Patient Tobacco Use Status: Current everyday Tobacco user Allergies No Known Allergies [No Known Allergies*] Allergy (Verified 02/25/24 09:44) Do you need a note to return to daycare/school/sports/work: No HPI HPI Comments History of Present Illness Details Patient is a 53-year-old male complaining of a itchy rash for 3 days. He states it is on his right arm, his left eyelid, and his spreading through more parts of his body it is so itchy, he can not sleep. He denies any fevers. [facility] Medical History (Updated 02/25/24 @ 10:10 by Claudette Foley PA-C) Impaired fasting glucose Nicotine dependence, cigarettes, uncomplicated Elevated liver enzymes Moderate persistent asthma Hypertriglyceridemia Depression with anxiety ERMIAS (obstructive sleep apnea) Surgical History No pertinent past surgical history Family History Sister Mental health disorder Social History Housing: Apartment Patient Tobacco Use Status: Current everyday Tobacco user Tobacco use type: Cigarette Years Smoked: (onset 16yo, 1/2-3/4ppd x 35yrs, 20pyh) e-Cigarette/Vaping Use: Never Used service: No Current occupational status: employed 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 Cognitive needs: No Hearing needs: No Vision needs: No Review of Systems Const All systems reviewed & are unremarkable except as noted in HPI and below Physical Exam Vital Signs: Last Vital Signs Temp 98.2 F 02/25/24 09:45 Pulse 73 02/25/24 09:45 BP 122/76 02/25/24 09:45 Pulse Ox 97 02/25/24 09:45 Oxygen Delivery Method Room Air 02/25/24 09:45 BMI result Body Mass Index 29.5 Const General: cooperative, healthy appearing, comfortable and no acute distress Orientation/consciousness: patient oriented x3 Limitations: no limitations HEENT Head: Yes normal to inspection Eyes General: appearance normal, both eyes and all related structures Resp Effort & Inspection: normal respiratory effort and able to speak in complete sentences Skin Other: A streaky, linear maculopapular rash with crusted lesions on right forearm, behind his left ear, on his right eyelid upper and lower. Neuro General: patient oriented x3 Assessment & Plan Assessment & Plan (1) Allergic dermatitis: Code(s): L23.9 - Allergic contact dermatitis, unspecified cause Plan: As it is involving the left eyelid, we will send 10 day taper of prednisone. Gave patient strict instructions on when to seek emergency care, i.e. any changes in his vision or blurry vision. Recommended trying not to touch his eye and gave instructions on how to avoid further spreading the poison shanna. Plan See above Medications: New prednisone On days 1&2, take 3 tablets with breakfast. On days 3&4 take 2 tablets with breakfast, on days 5&6 take 1.5 tablets with breakfast, on days 7&8 take 1 tablet with breakfast, on days 9&10 take 0.5 tablet with breakfast. 20 mg PO DAILY 16 tabs 0RF Coding Level of Care Code Est Pt Level 3 (87204) Diagnoses Allergic dermatitis L23.9
[2024-02-25 09:45] VITALS: BP 122/76; PULSE 73; TEMP 36.8; O2SAT 97; BMI 29.5
== END 2024-02-25 10:31 | disposition home or self-care (01) ==
PROVIDERS: PCP Internal Medicine; Visit Provider Physician Assistant
DX: L23.9 Allergic contact dermatitis, unspecified cause (principal)
CPT/HCPCS: 99213

== ENCOUNTER 2024-02-29 09:01 | Outpatient (REF) | payer OTHER, SELFPAY ==
--- NOTE | ~2024-02-29 | CT_ITS ---
EXAMINATION: CT LOW-DOSE SCREENING CHEST WITHOUT CONTRAST CLINICAL INFORMATION: Nicotine dependence, cigarettes, uncomplicated. The patient is a current smoker with a 35 pack-year history of smoking. COMPARISON: CT chest May 22, 2022. TECHNIQUE: Multidetector volumetric CT imaging of the chest is performed on a Siemens SOMATOM Definition scanner without contrast using low dose technique. Additional 2D coronal and sagittal reformatted images and axial 3D maximum intensity projection (MIP) images are generated on the CT workstation. This CT examination was performed using dose optimization techniques as appropriate, variously including the following: *Automated exposure control *Adjustment of mA and/or kV according to patient size (this includes techniques or standardized protocols for targeted exams where dose is matched to indication/reason for exam; i.e. extremities or head) *Use of iterative reconstruction technique TOTAL EXAM DLP: 49 mGy-cm. CTDIvol: 1.66 mGy. FINDINGS: PULMONARY NODULES: No suspicious pulmonary nodules. LUNGS: Lungs bilaterally symmetrically expanded. The right hemidiaphragm is again noted to be elevated. There is mild emphysema along with mild bronchial thickening without bronchiectasis. No effusion or pneumothorax. Central airways patent. MEDIASTINUM: No mediastinal, hilar or axillary adenopathy or free fluid collection. CORONARY ARTERY CALCIFICATION: None visualized on this study. THYROID GLAND: Unremarkable to the extent seen. CARDIOVASCULAR STRUCTURES: Aortic and heart size normal. No pericardial effusion. CHEST WALL/AXILLA: Unremarkable. UPPER ABDOMEN: Included portions of the solid organs in the upper abdomen unremarkable on noncontrast imaging. OSSEOUS STRUCTURES: No suspicious focal findings. CT/CT lung screening IMPRESSION: Unremarkable examination. ASSESSMENT: 1. Lung-RADS Category 1: Negative. There are no nodules or there are definitely benign nodules. N/A 2. Lung-RADS Category S: Negative. There are no clinically significant or potentially clinically significant findings not related to the lungs requiring urgent additional evaluation. RECOMMENDATION: Continued routine annual low-dose CT lung screening in 1 year is recommended. An order for CT CHEST LOW DOSE CANCER SCREENING ([id number]) can be placed. Electronically signed by: Darvin Nunez MD 03/24/2024 11:59 AM EDT
== END 2024-02-29 09:02 | disposition home or self-care (01) ==
LOC: HO.CT 09:01
PROVIDERS: PCP Internal Medicine; Visit Provider Physician Assistant Medical
DX: Z12.2 Encounter for screening for malignant neoplasm of respiratory organs (principal); F17.210 Nicotine dependence, cigarettes, uncomplicated
CPT/HCPCS: 71271

== ENCOUNTER 2024-03-16 09:31 | Outpatient (AMB) | payer OTHER, SELFPAY ==
--- NOTE | 2024-03-16 09:37 | MHC.OFFVIS ---
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 He was admitted briefly to [facility]. He did rule out for heart attack and also had a nuclear stress test with that was reassuring. Since then he quit smoking. This been difficult but he has been doing a good job. He also was given Symbicort and also a short-acting beta agonist for his respiratory symptoms of chest tightness and shortness of breath. The patient does not using regularly. We did go through the instructions on how to use it. In the meantime the patient does have daytime drowsiness. He does wake up short of breath and his significant other complaints that he stops breathing and also has snoring. He does have an elevated Maury score of 12/24. The patient has never had a sleep study. Will request a home sleep study at this time. The patient does have a long smoking history but he is only 50. Therefore we will introduce into the lung cancer screening program next year when he turns 51. 04/09/2022 the patient is here for a pulmonary follow-up visit. The patient has been having some difficulties tolerating CPAP. He was initially doing well and then he could not tolerate that elevated pressures. He did call to try to decrease the pressures down. He did bring machine today. When he does use it his AHI was much improved. I do believe that the nasal mask is difficult for him to tolerate with the increased pressure. I did change his mask to a F30i med mass. He seemed to tolerate this pressure much better. We kept the ramp at 4 cm and decrease his CPAP to 6 cm. He tolerated both pressures well. I am hopeful that he can tolerate the CPAP better specially with his underlying severe sleep apnea and increased cardiovascular risk factors. Patient continues smoking cigarettes. The patient is interested in participating in the lung cancer screening program. He is going to start cutting down and hopefully quitting altogether. He has quit in the past. He does continue to use his inhalers which include Symbicort and also has a rescue inhaler as needed. 12/25/2022 the patient is here for pulmonary follow-up visit. The patient overall has been doing relatively well. Unfortunately continues to smoke cigarettes. Ultimately affecting his breathing. He is motivated to quitting. He does have a history of depression so therefore using Chantix may be contraindicated. He does have the gum. I will give him a lower dose nicotine patch that he can use and then he can use a breakthrough gum as well. He is does respond well to the respiratory therapy he will continue that for now. The CPAP therapy also be important to continue. The patient does have underlying sleep apnea. The use of the CPAP is affecting beneficial for him. 03/16/2024 the patient is here for a pulmonary follow-up visit. The patient fairly well. He has been trying to uses CPAP. The CPAP therapy is very important for him. His affecting beneficial. Sometimes he struggles with the pressure settings. He did bring it in. I was able to decrease the pressures down to the lowest number, 4 cm. He will continue with CPAP before for now. He did tried on and with his mask any was comfortable with it. I also provided him with a sleep aid in order for him to be able to sleep better at night in tolerate the therapy. The patient understands that is for his cardiovascular health. She also is participating in the lung cancer screening program and wants to quit smoking. I did give him information about the quit program and also his CT scans reassuring but which the waiting for the final read. No significant nodules that I could appreciate. The patient otherwise is doing well. [facility] Medical History (Updated 02/25/24 @ 10:10 by Claudette Foley PA-C) Impaired fasting glucose Nicotine dependence, cigarettes, uncomplicated Elevated liver enzymes Moderate persistent asthma Hypertriglyceridemia Depression with anxiety ERMIAS (obstructive sleep apnea) Surgical History No pertinent past surgical history Family History Sister Mental health disorder Social History Housing: Apartment Patient Tobacco Use Status: Current everyday Tobacco user Tobacco use type: Cigarette Years Smoked: (onset 16yo, 1/2-3/4ppd x 35yrs, 20pyh) e-Cigarette/Vaping Use: Never Used service: No Current occupational status: employed 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 Cognitive needs: No Hearing needs: No Vision needs: No Review of Systems Const Reports daytime sleepiness, Reports difficulty sleeping, Denies night sweats, Reports snoring, Reports stops breathing during sleep and Reports weight gain ENT Reports no additional complaints Card Denies chest pain and Denies dyspnea on exertion Resp Reports cough, Denies dyspnea on exertion and Reports snoring GI Denies abdominal pain and Denies change in bowel habits Musc Denies no additional complaints Neuro Denies Neuro-related abnormal movements Psych Denies no additional complaints and Reports as per HPI Kevin/Lymph Denies easy bleeding and Denies lymphadenopathy Physical Exam Vital Signs: Last Vital Signs Pulse 70 03/16/24 09:38 BP 118/60 03/16/24 09:38 Pulse Ox 98 03/16/24 09:38 Oxygen Delivery Method Room Air 03/16/24 09:38 BMI result Body Mass Index 29.0 Const General: alert Eyes Pupils: Equal, round and reactive pupils present Neck Neck: Yes normal visual inspection, Yes full ROM and Yes no lymphadenopathy Chest Chest palpation & inspection: normal inspection of the chest Resp Effort & Inspection: normal respiratory effort Auscultation: clear to auscultation bilaterally Cardio Rate: regular rate Rhythm: regular rhythm Heart sounds: S1 normal heart sound present and S2 normal heart sound present GI Palpation (GI): Soft to palpation and nontender Auscultation: normal bowel sounds Skin General skin exam: rashes and/or lesions noted Neuro Cranial nerves: Yes Equal, round and reactive pupils present Quality Reporting (2019) Adult ([facility] 138/08/26/68) Smoking risk assessment performed?: Yes Patient Tobacco Use Status: Current everyday Tobacco user Assessment & Plan Assessment & Plan (1) ERMIAS (obstructive sleep apnea): Code(s): G47.33 - Obstructive sleep apnea (adult) (pediatric) Category: Medical Plan: Severe with AHI >30 (2) Moderate persistent asthma: Code(s): J45.40 - Moderate persistent asthma, uncomplicated Category: Medical Qualifiers: Asthma complication type: uncomplicated Qualified Code(s): J45.40 - Moderate persistent asthma, uncomplicated (3) Nicotine dependence, cigarettes, uncomplicated: Comment: (michaelr smoker - onset 16yo, 1/2-3/4ppd x 35yrs, 20pyh) Code(s): F17.210 - Nicotine dependence, cigarettes, uncomplicated Category: Medical Plan continue Symbicort to use in the morning and then rinse his mouth Well short-acting beta agonist as needed continue APAP therapy, Airsense 11 ramp 4, CPAP 4 with respironics nasal craddle LDCT Tobacco cessation sleep aid: Trazodone follow-up in 6 months Medications: New trazodone 100 mg (2 x 50 mg) PO BEDTIME 30 days PRN 60 tabs 5RF insomnia Coding Level of Care Code Est Pt Level 4 (60625) Diagnoses ERMIAS (obstructive sleep apnea) G47.33 Moderate persistent asthma without complication J45.40 Asthma complication type: uncomplicated Nicotine dependence, cigarettes, uncomplicated F17.210 Time Spent (min) 20
[2024-03-16 09:38] VITALS: BP 118/60; PULSE 70; O2SAT 98; BMI 29.0
== END 2024-03-16 09:59 | disposition home or self-care (01) ==
PROVIDERS: PCP Internal Medicine; Visit Provider Hospitalist
DX: G47.33 Obstructive sleep apnea (adult) (pediatric) (principal); J45.40 Moderate persistent asthma, uncomplicated; F17.210 Nicotine dependence, cigarettes, uncomplicated
CPT/HCPCS: 99214

== ENCOUNTER → 2024-03-16 09:31 | Outpatient (BNVA) | payer OTHER, SELFPAY | PROVIDERS: PCP Internal Medicine; Visit Provider Hospitalist | DX: G47.33 Obstructive sleep apnea (adult) (pediatric) (principal); J45.40 Moderate persistent asthma, uncomplicated; F17.210 Nicotine dependence, cigarettes, uncomplicated; Z99.89 Dependence on other enabling machines and devices | CPT/HCPCS: 99212 ==

== ENCOUNTER 2024-04-26 08:46 | Day surgery (SDC) | payer OTHER, SELFPAY ==
[2024-04-24 14:23] VITALS: BMI 29.0
--- NOTE | 2024-04-25 09:20 | P.CONAN_ITS ---
Documented by User: Diana Saucedo NP 04/25/24 09:22 HPI - Anesthesia Eval Consult details Narrative: 53yo M for Colonoscopy [facility] Active Problems Active Problems: All Active Problems Allergic dermatitis (Acute) Asthma (Acute) Impaired fasting glucose (Acute) Hypertriglyceridemia (Acute) Moderate persistent asthma (Acute) ERMIAS (obstructive sleep apnea) (Acute) Nicotine dependence, cigarettes, uncomplicated (Acute) Elevated liver enzymes (Acute) Depression with anxiety (Acute) Past Medical History Medical History (Updated 02/25/24 @ 10:10 by Claudette Foley PA-C) Impaired fasting glucose Nicotine dependence, cigarettes, uncomplicated Elevated liver enzymes Moderate persistent asthma Hypertriglyceridemia Depression with anxiety ERMIAS (obstructive sleep apnea) Family History Family History Sister Mental health disorder Surgical History Surgical History No pertinent past surgical history Social History Social History Housing: Apartment Patient Tobacco Use Status: Current everyday Tobacco user Tobacco use type: Cigarette Years Smoked: (onset 16yo, 1/2-3/4ppd x 35yrs, 20pyh) e-Cigarette/Vaping Use: Never Used Are you DNR?: No Advance Directives: No Advance Directives Information Provided: Yes service: No Current occupational status: employed 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 Cognitive needs: No Hearing needs: No Vision needs: No Meds Allergies Allergy/AdvReac Type Severity Reaction Status Date / Time No Known Allergies Allergy Verified 03/16/24 09:41 [No Known Allergies*] Home Medications ?Medication ?Instructions ?Recorded ?Confirmed ?Last Taken ?Type CPAP (CPAP Machine/Device) 03/16/24 Unknown History Exam Height,Weight and Vital Signs: Height 5 ft 6 in Weight 81.647 kg Assessment and Plan Assessment Anesthesia Assessment: Chart Reviewed Documented by User: Levi Mann MD 04/26/24 11:16 PMFSH Past Medical History Medical History (Updated 02/25/24 @ 10:10 by Claudette Foley PA-C) Impaired fasting glucose Nicotine dependence, cigarettes, uncomplicated Elevated liver enzymes Moderate persistent asthma Hypertriglyceridemia Depression with anxiety ERMIAS (obstructive sleep apnea) Family History Family History Sister Mental health disorder Family history of problems with anesthesia: No Surgical History Surgical History No pertinent past surgical history History of Problems with Anesthesia: No Social History Social History Housing: Apartment Patient Tobacco Use Status: Current everyday Tobacco user Tobacco use type: Cigarette Years Smoked: (onset 16yo, 1/2-3/4ppd x 35yrs, 20pyh) e-Cigarette/Vaping Use: Never Used Are you DNR?: No Advance Directives: No Advance Directives Information Provided: Yes service: No Current occupational status: employed 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 Cognitive needs: No Hearing needs: No Vision needs: No Meds Allergies Allergy/AdvReac Type Severity Reaction Status Date / Time No Known Allergies Allergy Verified 03/16/24 09:41 [No Known Allergies*] Home Medications ?Medication ?Instructions ?Recorded ?Confirmed ?Last Taken ?Type CPAP (CPAP Machine/Device) 03/16/24 Unknown History Exam Airway Mallampati Class: II TM Dist: >3cm Neck ROM: Full Loose/Missing/Broken Teeth: Yes (mult missing and loose teeth) and Upper Heart: ok Lungs: ok Assessment and Plan Assessment Anesthesia Assessment: Anesthesia Plan Discussed Final Anesthetic Review Family History of Problems with Anesthesia: No History of Problems with Anesthesia: No NPO: Yes ASA Class: III Final Preanesthetic Review: No Changes in Pt Med Stat, Meds/Allgs Chart Reviewed, Consent Obtained/Reviewed and Anes Risks/Benef Reviewed Patient Risk: Intermediate Procedure Risk: Low Anesthetic Plan Anesthetic Plan: MAC: and Agree w/ Assess. and Plan Disposition: Standard PACU
[2024-04-26 10:40] VITALS: BP 123/73; PULSE 58; RESP 16; TEMP 36.6; O2SAT 96; BMI 29.9
[2024-04-26] MEDS: Lactated Ringers 1,000 ML 100 ML IVCONT (11:00)
--- NOTE | 2024-04-26 11:15 | MHC.SHP ---
Pre-Procedural Eval Section A - 24 Hr Update-Section A only Date of Service: 04/26/24 Section B - Complete if H&P > 30 days Chief Complaint: screening Relevant Family History (Specify if Yes): No Relevant Social History: Tobacco Use Present Medications: see Short Stay Collaborative assessment Medical History: Significant History (Impaired fasting glucose Nicotine dependence, cigarettes, uncomplicated Elevated liver enzymes Moderate persistent asthma Hypertriglyceridemia Depression with anxiety ERMIAS (obstructive sleep apnea)) History of Previous Operations: No relevant previous surgery Allergies: Allergies Allergy/AdvReac Type Severity Reaction Status Date / Time No Known Allergies Allergy Verified 03/16/24 09:41 [No Known Allergies*] Review of Systems Sugical H&P ROS: Negative: Constitution, Cardiovascular, Respiratory, Neurological, Psychiatric, Hem-Onc, Allergic/Immunologic, Gastrointestinal, Genitourinary, Musculoskeletal, Integumentary, Endocrine and Eyes/Ears/Nose/Throat Exam Surgical H&P Exam: Normal: HEENT, Normal: Heart, Normal: Lungs, Normal: Extremities, Normal: Abdomen, Normal: Skin and Normal: Neurological Plan Diagnosis/Plan: Unchanged I have reviewed the history and physical and performed a pertinent physical examination on my patient. No changes have occurred unless specified. Time Spent With Patient Time: Total time managing care of this patient today ____ minutes.
--- NOTE | 2024-04-26 12:24 | P.OPN-COLO_ITS ---
Colonoscopy Operative Note Operative Note Date of Service: 04/26/24 Narrative: Operative Information Procedure Description: Colonoscopy Indication: screening Anesthesia: MAC COLONOSCOPY Instrument: Olympus variable stiffness pediatric scope 190L Colonoscopy Monitoring: Vital signs and clinical assessment, continuous EKG monitoring, Pulse oximetry, Carbon Dioxide monitoring and blood pressure monitoring were done throughout the procedure. Colon withdrawal time was 12 minutes. Procedure: The patient was placed in the left lateral decubitis position and pre-procedure medications were administered. After a digital rectal examination of the ano-rectum, the video colonoscope was inserted into the rectum and advanced through the colon to the cecum/TI. The colonoscope was slowly withdrawn in a retrograde panoramic fashion and the colon mucosa was carefully examined including a retroflexed view of the rectum. Findings and interventions are described below. Procedure Difficulty: easy Findings: Terminal Ileum-normal Cecum:normal Right sided retroflexion- normal Ascending Colon: normal Transverse Colon -normal Descending Colon: 10-11 mm sessile polyp removed with cold snare, 4-6 mm sessile polyp removed with cold forceps Sigmoid Colon: normal Rectum: Retroflexion with small internal hemorrhoids seen, grade I Anorectum - normal Intervention: cold snare, cold forceps Colon preparation: Zwingle Bowel Preparation Scale Right colon; 2 Transverse colon: 2 Left colon; 2 (0 = Unprepared colon segment with mucosa not seen due to solid stool that cannot be cleared. 1 = Portion of mucosa of the colon segment seen, but other areas of the colon segment not well seen due to staining, residual stool and/or opaque liquid. 2 = Minor amount of residual staining, small fragments of stool and/or opaque liquid, but mucosa of colon segment seen well. 3 = Entire mucosa of colon segment seen well with no residual staining, small fragments of stool or opaque liquid) Impression and Post Procedure Diagnosis: colon polyps internal hemorrhoids Plan: High fiber diet leaflet Avoid straining at stool, epsom salts and sitz bath, anusol supps or cream Repeat Colonoscopy in 5 years due to polyps or earlier if clinically indicated Above findings were reviewed with the patient and relevant handouts were provided if indicated.
[2024-04-26 12:30] VITALS: BP 103/64; PULSE 56; RESP 18; TEMP 36.4; O2SAT 96
[2024-04-26 12:45] VITALS: BP 111/63; PULSE 56; RESP 18; O2SAT 97
[2024-04-26 13:00] VITALS: BP 110/60; PULSE 56; RESP 16; TEMP 36.4; O2SAT 97
== END 2024-04-26 13:35 | disposition home or self-care (01) ==
PROVIDERS: PCP Internal Medicine; Visit Provider Internal Medicine Gastroenterology
PROC: 0DJD8ZZ Inspection of Lower Intestinal Tract, Via Natural or Artificial Opening Endoscopic (ICD-10-PCS; CPT 45378; principal; 2024-04-26 11:30)
DX: Z12.11 Encounter for screening for malignant neoplasm of colon (principal); D12.4 Benign neoplasm of descending colon; K64.0 First degree hemorrhoids; K59.00 Constipation, unspecified; R73.01 Impaired fasting glucose; J45.40 Moderate persistent asthma, uncomplicated; R74.8 Abnormal levels of other serum enzymes; E78.1 Pure hyperglyceridemia; G47.33 Obstructive sleep apnea (adult) (pediatric); F41.8 Other specified anxiety disorders; Z79.899 Other long term (current) drug therapy; Z99.89 Dependence on other enabling machines and devices; F17.210 Nicotine dependence, cigarettes, uncomplicated
CPT/HCPCS: 45385; 45380; 88305; J2003; J2704

== ENCOUNTER → 2024-04-26 08:46 | Outpatient (BNV) | payer OTHER, SELFPAY | PROVIDERS: PCP Internal Medicine; Visit Provider Internal Medicine Gastroenterology | DX: Z12.11 Encounter for screening for malignant neoplasm of colon (principal); D12.4 Benign neoplasm of descending colon; K63.5 Polyp of colon; K64.8 Other hemorrhoids | CPT/HCPCS: 45380; 45385 ==

== ENCOUNTER → 2024-05-10 12:25 | Outpatient (BNVA) | payer OTHER, SELFPAY | PROVIDERS: PCP Internal Medicine; Visit Provider Nurse Practitioner ==

== ENCOUNTER 2024-05-17 09:22 | Outpatient (AMB) | payer OTHER, SELFPAY ==
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
== END 2024-05-17 09:56 | disposition home or self-care (01) ==
PROVIDERS: PCP Internal Medicine; Visit Provider Nurse Practitioner
DX: D12.6 Benign neoplasm of colon, unspecified (principal)
CPT/HCPCS: 99213

== ENCOUNTER → 2024-05-17 09:22 | Outpatient (BNVA) | payer OTHER, SELFPAY | PROVIDERS: PCP Internal Medicine; Visit Provider Nurse Practitioner | DX: D12.6 Benign neoplasm of colon, unspecified (principal) | CPT/HCPCS: 99212 ==

== ENCOUNTER 2024-09-13 09:39 | Outpatient (AMB) | payer OTHER, SELFPAY ==
[2024-09-13 09:46] VITALS: BP 106/64; PULSE 60; O2SAT 97; BMI 30.1
--- NOTE | 2024-09-13 09:46 | A.OFFVIS_ITS ---
Vital Signs 09/13/24 09:46 Height 5 ft 6 in Weight 186 lb 4.65 oz BMI 30.1 BP 106/64 Blood Pressure Location Rt brachial Position Sitting Pulse 60 Pulse Source Pulse Oximeter Pulse Oximetry (%) 97 Oxygen Delivery Method Room Air Intake Visit Reasons: CPAP Usage Allergies No Known Allergies [No Known Allergies*] Allergy (Verified 05/17/24 09:38) HPI Comments Details: The patient is a 53-year-old gentleman with a known history of tobacco dependency who apparently was in her usual state health until the last month wh en he started developing chest pressure and pain. He was admitted briefly to [facility]. He did rule out for heart attack and also had a nuclear stress test with that was reassuring. Since then he quit smoking. This been difficult but he has been doing a good job. He also was given Symbicort and also a short-acting beta agonist for his respiratory symptoms of chest tightness and shortness of breath. The patient does not using regularly. We did go through the instructions on how to use it. In the meantime the patient does have daytime drowsiness. He does wake up short of breath and his significant other complaints that he stops breathing and also has snoring. He does have an elevated Sanford score of 12/24. The patient has never had a sleep study. Will request a home sleep study at this time. The patient does have a long smoking history but he is only 50. Therefore we will introduce into the lung cancer screening program next year when he turns 51. 04/09/2022 the patient is here for a pulmonary follow-up visit. The patient has been having some difficulties tolerating CPAP. He was initially doing well and then he could not tolerate that elevated pressures. He did call to try to decrease the pressures down. He did bring machine today. When he does use it his AHI was much improved. I do believe that the nasal mask is difficult for him to tolerate with the increased pressure. I did change his mask to a F30i med mass. He seemed to tolerate this pressure much better. We kept the ramp at 4 cm and decrease his CPAP to 6 cm. He tolerated both pressures well. I am hopeful that he can tolerate the CPAP better specially with his underlying severe sleep apnea and increased cardiovascular risk factors. Patient continues smoking cigarettes. The patient is interested in participating in the lung cancer screening program. He is going to start cutting down and hopefully quitting altogether. He has quit in the past. He does continue to use his inhalers which include Symbicort and also has a rescue inhaler as needed. 12/25/2022 the patient is here for pulmonary follow-up visit. The patient overall has been doing relatively well. Unfortunately continues to smoke cigarettes. Ultimately affecting his breathing. He is motivated to quitting. He does have a history of depression so therefore using Chantix may be contraindicated. He does have the gum. I will give him a lower dose nicotine patch that he can use and then he can use a breakthrough gum as well. He is does respond well to the respiratory therapy he will continue that for now. The CPAP therapy also be important to continue. The patient does have underlying sleep apnea. The use of the CPAP is affecting beneficial for him. 03/16/2024 the patient is here for a pulmonary follow-up visit. The patient fairly well. He has been trying to uses CPAP. The CPAP therapy is very important for him. His affecting beneficial. Sometimes he struggles with the pressure settings. He did bring it in. I was able to decrease the pressures down to the lowest number, 4 cm. He will continue with CPAP before for now. He did tried on and with his mask any was comfortable with it. I also provided him with a sleep aid in order for him to be able to sleep better at night in tolerate the therapy. The patient understands that is for his cardiovascular health. She also is participating in the lung cancer screening program and wants to quit smoking. I did give him information about the quit program and also his CT scans reassuring but which the waiting for the final read. No significant nodules that I could appreciate. The patient otherwise is doing well. 09/13/2024 the patient is here for a pulmonary follow-up visit. Overall he is doing good. He is still struggling with CPAP though. The pressures the lowest possible 4 cm. He has used it a few times. Sometimes he is not sure if the mask is fitting well. He has 2 masks now. He gets supplies from [employer]. I will have him come in and see us in the office and have a check up on his machine to make sure that is properly set up and also try him on the mask to assure him which mask will be best for him. He will do that in the next few weeks. For now though he is also smoking. He has interested in quitting. He wants to do it cold turkey. Also he has next low-dose CT scan will be for the summer of 2024. His last 1 was rads 1 which is reassuring. I will send him a rescue inhaler that he can use as needed. Hold off on maintenance inhalers at this time. [facility] Medical History Impaired fasting glucose Nicotine dependence, cigarettes, uncomplicated Elevated liver enzymes Moderate persistent asthma Hypertriglyceridemia Depression with anxiety ERMIAS (obstructive sleep apnea) Surgical History No pertinent past surgical history Family History Sister Mental health disorder Social History (Updated 09/13/24 @ 09:50 by Shantell Mckenna [facility]) Housing: Apartment Patient Tobacco Use Status: Current everyday Tobacco user Tobacco use type: Cigarette Cigarette Packs Per Day: 0.5 Cigarettes Per Day: 8 Years Smoked: (onset 16yo, 1/2-3/4ppd x 35yrs, 20pyh) e-Cigarette/Vaping Use: Never Used service: No Current occupational status: employed 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 Cognitive needs: No Hearing needs: No Vision needs: No Review of Systems Const Reports daytime sleepiness, Reports difficulty sleeping, Denies night sweats, Reports snoring, Reports stops breathing during sleep and Reports weight gain ENT Reports no additional complaints Card Denies chest pain and Denies dyspnea on exertion Resp Reports cough, Denies dyspnea on exertion and Reports snoring GI Denies abdominal pain and Denies change in bowel habits Musc Denies no additional complaints Neuro Denies Neuro-related abnormal movements Psych Denies no additional complaints and Reports as per HPI Kevin/Lymph Denies easy bleeding and Denies lymphadenopathy Physical Exam Vital Signs: Last Vital Signs Pulse 60 09/13/24 09:46 BP 106/64 09/13/24 09:46 Pulse Ox 97 09/13/24 09:46 Oxygen Delivery Method Room Air 09/13/24 09:46 BMI result Body Mass Index 30.1 Const General: alert Eyes Pupils: Equal, round and reactive pupils present Neck Neck: Yes normal visual inspection, Yes full ROM and Yes no lymphadenopathy Chest Chest palpation & inspection: normal inspection of the chest Resp Effort & Inspection: normal respiratory effort Auscultation: clear to auscultation bilaterally Cardio Rate: regular rate Rhythm: regular rhythm Heart sounds: S1 normal heart sound present and S2 normal heart sound present GI Palpation (GI): Soft to palpation and nontender Auscultation: normal bowel sounds Skin General skin exam: rashes and/or lesions noted Neuro Cranial nerves: Yes Equal, round and reactive pupils present Quality Reporting (2019) Adult ([facility] 13808/26/68) Smoking risk assessment performed?: Yes Patient Tobacco Use Status: Current everyday Tobacco user Assessment & Plan Assessment & Plan (1) ERMIAS (obstructive sleep apnea): Code(s): G47.33 - Obstructive sleep apnea (adult) (pediatric) Category: Medical Plan: Severe with AHI >30 (2) Moderate persistent asthma: Code(s): J45.40 - Moderate persistent asthma, uncomplicated Category: Medical Qualifiers: Asthma complication type: uncomplicated Qualified Code(s): J45.40 - Moderate persistent asthma, uncomplicated (3) Nicotine dependence, cigarettes, uncomplicated: Comment: (cory smoker - onset 16yo, 1/2-3/4ppd x 35yrs, 20pyh) Code(s): F17.210 - Nicotine dependence, cigarettes, uncomplicated Category: Medical Plan stop Symbicort short-acting beta agonist as needed continue APAP therapy, Airsense 11 ramp 4, CPAP 4 FM versus nasal mask. LDCT Tobacco cessation sleep aid: Trazodone follow-up in 6 months Medications: New albuterol sulfate 90 mcg/actuation (Ventolin HFA) 2 puffs inhalation QID PRN 18 grams 11RF shortness of breath or wheezing 30 days Coding Level of Care Code Est Pt Level 4 (99245) Diagnoses ERMIAS (obstructive sleep apnea) G47.33 Moderate persistent asthma without complication J45.40 Asthma complication type: uncomplicated Nicotine dependence, cigarettes, uncomplicated F17.210 Time Spent (min) 16
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
== END 2024-09-13 10:14 | disposition home or self-care (01) ==
LOC: HO.HPS 09:40
PROVIDERS: PCP Internal Medicine; Visit Provider Hospitalist
DX: G47.33 Obstructive sleep apnea (adult) (pediatric) (principal); J45.40 Moderate persistent asthma, uncomplicated; F17.210 Nicotine dependence, cigarettes, uncomplicated
CPT/HCPCS: 99214

== ENCOUNTER → 2024-09-13 09:39 | Outpatient (BNVA) | payer OTHER, SELFPAY | PROVIDERS: PCP Internal Medicine; Visit Provider Hospitalist | DX: G47.33 Obstructive sleep apnea (adult) (pediatric) (principal); J45.40 Moderate persistent asthma, uncomplicated; F17.210 Nicotine dependence, cigarettes, uncomplicated | CPT/HCPCS: 99212 ==

== ENCOUNTER 2024-11-28 09:48 | Outpatient (AMB) | payer OTHER, SELFPAY ==
--- NOTE | 2024-11-28 10:26 | A.OFFPC_ITS ---
Vital Signs 11/28/24 10:29 Height 5 ft 6 in Weight 186 lb 6 oz BMI 30.1 BP 118/72 Blood Pressure Location Rt brachial Position Sitting Respiration 22 H Pulse 64 Pulse Source Pulse Oximeter Temp 98.1 F Temp Source Oral Pulse Oximetry (%) 98 Oxygen Delivery Method Room Air Intake Visit Reasons: PE Intake Note: Pt is here today for his PE: Last colonoscopy 04/26/24 Allergies No Known Allergies [No Known Allergies*] Allergy (Verified 11/28/24 10:44) Medication List - Last Reconciled 11/28/24 by Sharon Schmitt MD albuterol sulfate 90 mcg/actuation (Ventolin HFA) 2 puffs inhalation QID PRN 30 days CPAP (CPAP Machine/Device) As directed escitalopram oxalate 10 mg PO DAILY sennosides (senna) 17.2 mg (2 x 8.6 mg) PO BEDTIME 30 days trazodone 100 mg (2 x 50 mg) PO BEDTIME PRN 30 days Tobacco use date assessed: 11/28/24 Dental Screening Dental Screen Date: 11/22/23 Did you have a dental visit in the last 12 months?: No Did you have a dental problem in the last 6 months where you did not have access to dental care?: No Was dental information given to patient?: Patient has dentist HPI PE HPI Details - The patient is a 53-year-old male pres enting for a comprehensive physical examination with emphasis on smoking cessation and management of chronic conditions. - Previous adenomatous polyp was excised in 2023 with surveillance colonoscopy planned in 2026. He denies new gastrointestinal symptoms. - Past elevations in blood sugar levels were noted as having normalized in the last evaluation. - Anxiety and insomnia occur intermitten tly; medication includes escitalopram 10 mg which has been effective. Trazodone has been used as needed for insomnia. Self-reports on mental health reflect improvement. - Seeking smoking cessation through [facility] with a history of once quitting through [facility] alone for six months. - Continues CPAP for obstructive sleep a pnea; occasionally reports technical issues with its function. - Reports a pruritic l rash around the u mbilicus - Nocturia denied; personal prostate hea lth remains unremarkable with blood work planned for further evaluation. - Reports infrequent binge drinking; pas t hyperlipidemia is set for current re- evaluation. - Tetanus and pneumonia vaccinations up to date; Shingles vaccine discussed, consideration deferred for a few more years. [facility] Medical History (Updated 11/28/24 @ 10:46 by Sharon Schmitt MD) History of adenomatous polyp Impaired fasting glucose Nicotine dependence, cigarettes, uncomplicated Elevated liver enzymes Moderate persistent asthma Hypertriglyceridemia Depression with anxiety ERMIAS (obstructive sleep apnea) Surgical History No pertinent past surgical history Family History Sister Mental health disorder Social History Housing: Apartment Patient Tobacco Use Status: Current everyday Tobacco user Tobacco use type: Cigarette Cigarette Packs Per Day: 0.5 Cigarettes Per Day: 8 Years Smoked: (onset 16yo, 1/2-3/4ppd x 35yrs, 20pyh) e-Cigarette/Vaping Use: Never Used service: No Current occupational status: employed 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 Cognitive needs: No Hearing needs: No Vision needs: No Questionnaire Thrive Questionnaire Date Thrive assessed: 11/22/24 I am a: Patient What is your living situation today?: I have a steady place to live Within the past 12 months, did the food you bought not last and you didn't have the money to get more?: I choose not to answer this question Within the past 12 months, did you worry whether your food would run out before you got money to buy more?: I choose not to answer this question Do you have trouble paying for medicines?: Yes Do you have trouble getting transportation to medical appointments?: No Do you have trouble paying your heating and electricity bill?: No Do you have trouble taking care of your child, family member or friend?: No Do you have trouble with day-to-day activities such as bathing, preparing meals, shopping, managing finances, etc.?: I choose not to answer this question Are you currently unemployed and looking for a job?: No Are you interested in more education?: No Please select the resources that you would like help with: Paying for medicine Currently or been in a relationship where the following occur: I choose not to answer THRIVE Score: 0 AUDIT C Alcohol Use Questionnaire (AUDIT-C) 1. How often do you have a drink containing alcohol?: Monthly or less 2. How many drinks containing alcohol do you have on a typical day when you are drinking?: 3 or 4 3. How often do you have six or more drinks on one occasion?: Monthly Total Score: 4 ANNITA-7 AMB Questionnaire ANNITA-7 Date ANNITA - 7 assessed: 11/22/23 Feeling nervous, anxious, or on edge: 1 = Several days Not being able to stop or control worryin = Several days Worrying too much about different things: 1 = Several days Trouble relaxin = Several days Being so restless that it is hard to sit still: 1 = Several days Becoming easily annoyed or irritable: 1 = Several days Feeling afraid as if something awful might happen: 1 = Several days Total ANNITA-7 score (0-4 normal; 5-9 mild; 10-14 moderate; 15-21 severe): 7 Source: Developed by Drs. Ravinder Perry, Zeinab Otero, Ac Freitas and colleagues, with an educational judah from [employer]. ANNITA-7 Assessment Billing ANNITA-7 Assessment Tool: ANNITA-7 Assessment 22361 Review of Systems Const Reports daytime sleepiness, Reports difficulty sleeping, Denies night sweats, Reports snoring, Reports stops breathing during sleep and Reports weight gain Eyes Details: Uses reading glasses ENT Reports no additional complaints Card Denies chest pain and Denies dyspnea on exertion Resp Reports cough, Denies dyspnea on exertion and Reports snoring GI Denies abdominal pain and Denies change in bowel habits Reports no additional complaints Musc Denies no additional complaints Skin/Breast Denies lesions and Denies rash Neuro Denies Neuro-related abnormal movements Psych Denies no additional complaints and Reports as per HPI Endo Reports no additional complaints Kevin/Lymph Denies easy bleeding and Denies lymphadenopathy Aller/Immun Reports no additional complaints Physical exam (Primary Care) Vital Signs: Last Vital Signs Temp 98.1 F 11/28/24 10:29 Pulse 64 11/28/24 10:29 Resp 22 H 11/28/24 10:29 BP 118/72 11/28/24 10:29 Pulse Ox 98 11/28/24 10:29 Oxygen Delivery Method Room Air 11/28/24 10:29 BMI result Body Mass Index 30.1 BMI Assessment/Plan discussion: High BMI High, discussed plan: lifestyle, weight reduction, dietary and physical activity Tobacco/Smoking Status: Tobacco use Status Tobacco use date assessed 11/28/24 11/28/24 10:34 Patient Tobacco Use Status Current everyday Tobacco 11/28/24 10:34 Tobacco use type Cigarette 11/28/24 10:34 e-Cigarette/Vaping Use Never Used 11/28/24 10:34 Thrive Assessment: Date of Thrive Assessment Date Thrive assessed 11/22/24 11/28/24 10:34 Currently or been in a relationship where the following occur: I choose not to answer Const General: cooperative, comfortable and no acute distress Nutritional Appearance: obese Orientation/consciousness: patient oriented x3 HENMT General nose exam: Normal external nose present Mouth: Normal oral and palatal mucosa present and moist mucous membranes Teeth and gingiva: poor dentition Eyes General: appearance normal, both eyes and all related structures Neck Neck: Yes full ROM, Yes no lymphadenopathy and Yes supple Resp Auscultation: clear to auscultation bilaterally Cardio Rate: regular rate Rhythm: regular rhythm Heart sounds: S1 normal heart sound present and S2 normal heart sound present GI Inspection: Yes obesity Palpation (GI): Soft to palpation, nontender, no guarding and no masses General: Yes no CVA tenderness Male General Exam: Yes normal external exam Back/Spine/Pelvis Back: no CVA tenderness and No back tenderness Skin Other: Skin tags present on right upper eyelid and left lower lid Neuro General: patient oriented x3, gait normal, moves all extremities and no focal motor deficits Extrem General: Yes full ROM, Yes no joint enlargement, Yes no pedal edema, Yes no calf tenderness and Yes normal gait Psych Appearance: grossly normal Mental Status: mental status grossly normal Speech and movement: Normal speech and movement present Affect: normal affect Attitude: cooperative Thought process: Normal thought process present Thought content: Normal thought content present Coding Level of Care Code Est Pt Prev Care 40-64y(24063) Diagnoses History of adenomatous polyp Z86.018 Hypertriglyceridemia E78.1 Moderate persistent asthma without complication J45.40 Asthma complication type: uncomplicated ERMIAS (obstructive sleep apnea) G47.33 Nicotine dependence, cigarettes, uncomplicated F17.210 Depression with anxiety F41.8 Annual visit for general adult medical examination with abnormal findings Z00.01 Impaired fasting glucose R73.01 Intertrigo L30.4 Additional Codes ANNITA-7 Assessment Billing - ANNITA-7 Assessment Tool: ANNITA-7 Assessment 52045 ([id number]) Assessment & Plan Assessment & Plan (1) History of adenomatous polyp: Comment: Removed on colonoscopy in 2023, repeat colonoscopy due again in 2026 Code(s): Z86.018 - Personal history of other benign neoplasm Category: Medical Plan: Due for repeat colonoscopy in 2026 (2) Hypertriglyceridemia: Code(s): E78.1 - Pure hyperglyceridemia Category: Medical Plan: Fasting lipids ordered, reinforced importance of following a low-cholesterol diet and getting regular exercise at least 30 minutes of moderate intensity exercise 3 to 4 times a week (3) Moderate persistent asthma: Code(s): J45.40 - Moderate persistent asthma, uncomplicated Category: Medical Qualifiers: Asthma complication type: uncomplicated Qualified Code(s): J45.40 - Moderate persistent asthma, uncomplicated Plan: Has Ventolin inhaler which she rarely needs to use (4) ERMIAS (obstructive sleep apnea): Code(s): G47.33 - Obstructive sleep apnea (adult) (pediatric) Category: Medical Plan: Compliant with CPAP use (5) Nicotine dependence, cigarettes, uncomplicated: Comment: (michaelr smoker - onset 16yo, 1/2-3/4ppd x 35yrs, 20pyh) Code(s): F17.210 - Nicotine dependence, cigarettes, uncomplicated Category: Medical Plan: Started on 14 mg nicotine patch, to be used as directed, rotate sites of use, do not smoke when using the patch, remove at night before sleeping. Possible side effects of medication discussed with patient, will see him back for follow-up in 4 weeks after starting the patch (6) Depression with anxiety: Code(s): F41.8 - Other specified anxiety disorders Category: Medical Plan: Continued on escitalopram and takes trazodone as needed for acute episodes of insomnia (7) Annual visit for general adult medical examination with abnormal findings: Code(s): Z00.01 - Encounter for general adult medical examination with abnormal findings Plan: Fasting labs have been ordered and done with results still pending Recommended dental visit every 6 months and regular eye exams, at least every 2 years. Take adequate calcium in diet and vitamin-D 3 at 2000 IU per cap once a day, in addition to weight-bearing exercises to help maintain good muscle tone and weight control. Instructed to do self-testicular exam check for any mass. Colonoscopy screening due again in 2026. He is up-to-date with his pneumonia vaccine Tdap, reminded to get yearly flu shot but does not want to get COVID booster (8) Impaired fasting glucose: Code(s): R73.01 - Impaired fasting glucose Category: Medical Plan: Your previous fasting blood sugars were elevated above 100 mg/dL. Impaired glucose metabolism increases the risk for developing diabetes mellitus type 2, as well as heart attack and stroke later on. Lifestyle changes that promotes weight loss, healthy eating habits, and regular exercise are important, and can prevent the progression to diabetes (9) Intertrigo: Code(s): L30.4 - Erythema intertrigo Plan: Prescription sent for nystatin-triamcinolone cream up-to-date 1000-0.1 unit /gm%, apply sparingly to umbilical area twice a day for no more than 10 days at a time. Orders: Orders Aspartate Amino Transferase 11/28/24 E78.1 - Pure hyperglyceridemia, F41.8 - Other specified anxiety disorders, R73.01 - Impaired fasting glucose, R74.8 - Abnormal levels of other serum enzymes Alanine Aminotransferase 11/28/24 E78.1 - Pure hyperglyceridemia, F41.8 - Other specified anxiety disorders, R73.01 - Impaired fasting glucose, R74.8 - Abnormal levels of other serum enzymes Lipid Panel 11/28/24 E78.1 - Pure hyperglyceridemia, F41.8 - Other specified anxiety disorders, R73.01 - Impaired fasting glucose, R74.8 - Abnormal levels of other serum enzymes PSA,Total (Free>4and<10) 11/28/24 Z12.5 - Encounter for screening for malignant neoplasm of prostate Basic Metabolic Panel Fasting 11/28/24 E78.1 - Pure hyperglyceridemia, F41.8 - Other specified anxiety disorders, R73.01 - Impaired fasting glucose, R74.8 - Abnormal levels of other serum enzymes Medications: New nystatin-triamcinolone 100,000-0.1 unit/g-% 1 appl topical BID 10 days 30 grams 0RF L30.4 - Erythema intertrigo Changed From trazodone 100 mg (2 x 50 mg) PO BEDTIME 30 days PRN 60 tabs 5RF insomnia To trazodone 50 mg PO BEDTIME 30 days PRN 30 tabs 1RF insomnia Refilled escitalopram oxalate 10 mg PO DAILY 90 tabs 3RF F41.8 - Other specified anxiety disorders
--- OUTSIDE RECORDS SUMMARY | 2024-11-28 10:26 | XMS_ITS | Clinical Summary ---
Author Organization [facility] ity Address [address] [place] [address] Care Team Providers Care Last Turner Name Role Phone Unavailable Primary Care Provider [...] ry of pericarditis; COMMENT: Aug 2017 f/u [place] [facility] Family History Medical History Relation Name [...] - 2023-2 5 season) 2024 Influenza Vaccine (Season Ended) 2025 Pneumococcal Vaccine: Pediat rics (0 to 5 [...] age to complete this topic Meningococcal B Vaccine Aged Out No l onger eligible based on patient's age to complete this topic RSV Immunization Patients Un latonya 20 months Aged Out No longer eligible b ased on patient's age to complete this topic Varicella Vaccines Aged Out No longer eligible based on patient's age to complete this topic
[2024-11-28 10:29] VITALS: BP 118/72; PULSE 64; RESP 22; TEMP 36.7; O2SAT 98; BMI 30.1
== END 2024-11-28 13:51 | disposition home or self-care (01) ==
LOC: HO.HMCC 09:49
PROVIDERS: PCP Internal Medicine; Visit Provider Internal Medicine
DX: Z86.018 Personal history of other benign neoplasm (principal); E78.1 Pure hyperglyceridemia; J45.40 Moderate persistent asthma, uncomplicated; G47.33 Obstructive sleep apnea (adult) (pediatric); F17.210 Nicotine dependence, cigarettes, uncomplicated; F41.8 Other specified anxiety disorders; Z00.01 Encounter for general adult medical examination with abnormal findings; R73.01 Impaired fasting glucose; L30.4 Erythema intertrigo

== ENCOUNTER 2024-11-28 09:48 | Outpatient (REF) | payer OTHER, SELFPAY ==
[2024-11-28 13:43] LABS: Alanine Aminotransferase 45 U/L (0-40); Anion Gap 11 (12-20); Aspartate Amino Transferase 32 U/L (5-37); Blood Urea Nitrogen 17 mg/dL (9-16); Calcium 9.3 mg/dL (8.4-10.2); Carbon Dioxide 28 mmol/L (22-29); Chloride 106 mmol/L (96-108); Cholesterol 181 mg/dL (<200); Estimated Glomerular Filt Rate > 60; Glucose Fasting 111 mg/dL (60-99); HDL Cholesterol 39 mg/dL (>40); LDL Cholesterol Calculated 109 mg/dL (<100); Potassium 3.9 mmol/L (3.3-5.1); Sodium 141 mmol/L (135-145); Triglycerides 167 mg/dL (<150)
[2024-11-28 13:59] LABS: PSA,Total (Free>4and<10) 1.19 ng/mL (0.00-4.00)
== END 2024-11-28 09:49 | disposition home or self-care (01) ==
LOC: HO.HMGCLDS 09:48
PROVIDERS: PCP Internal Medicine; Visit Provider Internal Medicine
DX: Z00.01 Encounter for general adult medical examination with abnormal findings (principal); E78.1 Pure hyperglyceridemia; J45.40 Moderate persistent asthma, uncomplicated; G47.33 Obstructive sleep apnea (adult) (pediatric); F41.8 Other specified anxiety disorders; R73.01 Impaired fasting glucose; L30.4 Erythema intertrigo; F17.210 Nicotine dependence, cigarettes, uncomplicated; Z86.018 Personal history of other benign neoplasm
CPT/HCPCS: 36415; 80048; 80061; 84153; 84450; 84460; 96127; 99396

== ENCOUNTER 2024-12-29 08:45 | Outpatient (AMB) | payer OTHER, SELFPAY ==
--- NOTE | 2024-12-29 08:44 | A.OFFPC_ITS ---
Intake Visit Reasons: 1m follow up smoking cessation Allergies No Known Allergies (No Known Allergies*) Allergy (Verified 12/29/24 08:55) Medication List - Last Reconciled 12/29/24 by Sharon Schmitt MD albuterol sulfate 90 mcg/actuation (Ventolin HFA) 2 puffs inhalation QID PRN 30 days CPAP (CPAP Machine/Device) As directed escitalopram oxalate 10 mg PO DAILY nystatin-triamcinolone 100,000-0.1 unit/g-% 1 appl topical BID 10 days sennosides (senna) 17.2 mg (2 x 8.6 mg) PO BEDTIME 30 days trazodone 50 mg PO BEDTIME PRN 30 days Tobacco use date assessed: 12/29/24 Dental Screening Dental Screen Date: 12/29/24 Did you have a dental visit in the last 12 months?: Yes Did you have a dental problem in the last 6 months where you did not have access to dental care?: No Was dental information given to patient?: Patient has dentist HPI 1m follow up smoking cessation HPI Details 54-year-old male with history of hypertr iglyceridemia and obesity, here today for follow-up on his smoking cessation. Patient was seen a month ago nose interested in quitting smoking. He was prescribed nicotine patches. Fortunately patient states that there was no prescription at the pharmacy when he went to pick it up. He is still interested in quitting smoking and would like to try the patches. Latest fasting labs showed fasting glucose in the prediabetic range at 111 mg/dL and has mildly elevated triglyceride levels He had low-dose lung CT scan done earlier this month which showed no acute abnormalities, no pulmonary nodules. Repeat low-dose lung CAT scan again in 1 year. [facility] Medical History History of adenomatous polyp Impaired fasting glucose Nicotine dependence, cigarettes, uncomplicated Elevated liver enzymes Moderate persistent asthma Hypertriglyceridemia Depression with anxiety ERMIAS (obstructive sleep apnea) Surgical History No pertinent past surgical history Family History Sister Mental health disorder Social History Housing: Apartment Patient Tobacco Use Status: Current everyday Tobacco user Tobacco use type: Cigarette Cigarette Packs Per Day: 0.5 Cigarettes Per Day: 8 Years Smoked: (onset 16yo, 1/2-3/4ppd x 35yrs, 20pyh) e-Cigarette/Vaping Use: Never Used service: No Current occupational status: employed 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[employer] Cognitive needs: No Hearing needs: No Vision needs: No Questionnaire Thrive Questionnaire Date Thrive assessed: 11/22/24 I am a: Patient What is your living situation today?: I have a steady place to live Within the past 12 months, did the food you bought not last and you didn't have the money to get more?: I choose not to answer this question Within the past 12 months, did you worry whether your food would run out before you got money to buy more?: I choose not to answer this question Do you have trouble paying for medicines?: Yes Do you have trouble getting transportation to medical appointments?: No Do you have trouble paying your heating and electricity bill?: No Do you have trouble taking care of your child, family member or friend?: No Do you have trouble with day-to-day activities such as bathing, preparing meals, shopping, managing finances, etc.?: I choose not to answer this question Are you currently unemployed and looking for a job?: No Are you interested in more education?: No Please select the resources that you would like help with: Paying for medicine Currently or been in a relationship where the following occur: I choose not to answer THRIVE Score: 0 ANNITA-7 AMB Questionnaire ANNITA-7 Date ANNITA - 7 assessed: 11/22/23 Source: Developed by Drs. Ravinder Perry, Zeinab Otero, Ac Freitas and colleagues, with an educational judah from [employer]. Review of Systems Const Details: Has appointment for evaluation of obstructive sleep apnea at pulmonary clinic in April 2025 Reports daytime sleepiness, Reports difficulty sleeping, Denies night sweats, Reports snoring, Reports stops breathing during sleep and Reports weight gain Eyes Details: Uses reading glasses ENT Reports no additional complaints Card Denies chest pain and Denies dyspnea on exertion Resp Reports cough, Denies dyspnea on exertion and Reports snoring GI Denies abdominal pain and Denies change in bowel habits Reports no additional complaints Musc Denies no additional complaints Skin/Breast Denies lesions and Denies rash Neuro Denies Neuro-related abnormal movements Psych Denies no additional complaints and Reports as per HPI Endo Reports no additional complaints Kevin/Lymph Denies easy bleeding and Denies lymphadenopathy Aller/Immun Reports no additional complaints Physical exam (Primary Care) Tobacco/Smoking Status: Tobacco use Status Tobacco use date assessed 12/29/24 12/29/24 08:45 Patient Tobacco Use Status Current everyday Tobacco 12/29/24 08:45 Tobacco use type Cigarette 12/29/24 08:45 e-Cigarette/Vaping Use Never Used 12/29/24 08:45 Thrive Assessment: Date of Thrive Assessment Date Thrive assessed 11/22/24 12/29/24 08:45 Currently or been in a relationship where the following occur: I choose not to answer Telehealth Telehealth Telehealth Platform: [facility] Location of provider rendering services: practice address Location of patient: address on file Patient Identification confirmed using: Name, : Yes Telehealth method: video Results Reviewed Results Reviewed: Name: Fernando Mcdowell Age/Sex: 53/M : 1970 Unit#: [id number] Attend Dr: Sharon Schmitt MD Re11/28/24 Status: DEP REF Location: [facility] Disch: SPEC : [id number] SHE: 11/28/24 STATUS: COMP REQ : [id number] RECD: 11/28/24-[address]: Sharon Schmitt MD COMP: 11/28/24-1343 ENTERED: 11/28/24-[address]: ORDERED: Met Prof Fast, AST, ALT, Lipid Panel Test Result Flag Reference Sodium 141 135-145 mmol/L Potassium 3.9 3.3-5.1 mmol/L CL 106 96-108 mmol/L CO2 28 22-29 mmol/L Gap 11 L 12-20 BUN 17 H 9-16 mg/dL Creat 0.60 0.5-1.4 mg/dL eGFR > 60 Chronic Kidney Disease: Estimated GFR < 60 mL/min/1.73m2 Severe Kidney Disease: Estimated GFR < 15 mL/min/1.73m2 FBS 111 H 60-99 mg/dL A fasting glucose from 100-125 mg/dl is considered impaired (pre-diabetes). CA 9.3 8.4-10.2 mg/dL AST (GOT) 32 5-37 U/L ALT (GPT) 45 H 0-40 U/L Triglyceride 167 H <150 mg/dL Desirable Triglyceride: less than 150 mg/dL Borderline High Triglyceride 150-199 mg/dL High Triglyceride: 200-499 mg/dL Very High Triglyceride: greater than or equal to 5OO mg/dL Cholesterol 181 <200 mg/dL Desirable Cholesterol: less than 200 mg/dL Borderline High Cholesterol: 200-239 mg/dL High Cholesterol: greater than 239 mg/dL LDL Calculated 109 H <100 mg/dL Desirable LDL: less than 100 mg/dL Near Optimal/Above Optimal LDL: 110-129 mg/dL Borderline High LDL: 130-159 mg/dL High LDL: 160-189 mg/dL Very High LDL: greater than or equal to 190 mg/dL HDL 39 L >40 mg/dL Desirable HDL: greater than 40 mg/dL Note: This HDL assay may give artificially low results in patients with liver disease. Coding Level of Care Code Tele Est Pt Level 4 (57203) Diagnoses Hypertriglyceridemia E78.1 Nicotine dependence, cigarettes, uncomplicated F17.210 Impaired fasting glucose R73.01 Assessment & Plan Assessment & Plan (1) Hypertriglyceridemia: Code(s): E78.1 - Pure hyperglyceridemia Category: Medical Plan: Fasting lipids showed elevated triglycerides. Reinforced importance of following healthy diet. In addition to in having at least moderate intensity exercise 30 minutes 3 to 4 times a week. (2) Nicotine dependence, cigarettes, uncomplicated: Comment: (cory smoker - onset 16yo, 1/2-3/4ppd x 35yrs, 20pyh) Code(s): F17.210 - Nicotine dependence, cigarettes, uncomplicated Category: Medical Plan: Prescription sent for nicotine patch 14 mg, to be applied to skin that is hairless but no lesions on upper chest upper arms or upper back, rotate sites of use, apply in the morning it take it off at night before sleeping. Will see him back for follow-up week of February 21 (3) Impaired fasting glucose: Code(s): R73.01 - Impaired fasting glucose Category: Medical Plan: Your previous fasting blood sugars were elevated above 100 mg/dL. Impaired glucose metabolism increases the risk for developing diabetes mellitus type 2, as well as heart attack and stroke later on. Lifestyle changes that promotes weight loss, healthy eating habits, and regular exercise are important, and can prevent the progression to diabetes Medications: New nicotine Apply to clean areas on upper chest outer arm and upper back, rotate sites, remove patch at night before sleeping 1 patch transdermal DAILY 28 ea 1RF F17.210 - Nicotine dependence, cigarettes, uncomplicated
--- OUTSIDE RECORDS SUMMARY | 2024-12-29 08:58 | XMS_ITS | Clinical Summary ---
Author Organization [facility] ity Address [address] [place] [address] Care Team Providers Care Systems Checkout Mechanic Name Role Phone Unavailable Primary Care Provider [...] ry of pericarditis; COMMENT: Aug 2017 f/u [facility] Family History Medical History Relation Name [...]
== END 2024-12-29 10:53 | disposition home or self-care (01) ==
LOC: HO.HMCC 08:45
PROVIDERS: PCP Internal Medicine; Visit Provider Internal Medicine
DX: E78.1 Pure hyperglyceridemia (principal); F17.210 Nicotine dependence, cigarettes, uncomplicated; R73.01 Impaired fasting glucose

== ENCOUNTER → 2024-12-29 08:45 | Outpatient (BNVA) | payer OTHER, SELFPAY | PROVIDERS: PCP Internal Medicine; Visit Provider Internal Medicine | DX: Z13.89 Encounter for screening for other disorder (principal) ==

== ENCOUNTER 2025-02-16 08:28 | Outpatient (AMB) | payer OTHER, SELFPAY ==
--- NOTE | 2025-02-16 08:31 | A.OFFPC_ITS ---
Intake Visit Reasons: cigarette scensation Cut Plug Packer Required: No Accompanied by: Self / Same As Patient Allergies No Known Allergies (No Known Allergies*) Allergy (Verified 02/16/25 08:40) Medication List - Last Reconciled 02/16/25 by Sharon Schmitt MD albuterol sulfate 90 mcg/actuation (Ventolin HFA) 2 puffs inhalation QID PRN 30 days CPAP (CPAP Machine/Device) As directed escitalopram oxalate 10 mg PO DAILY nicotine 1 patch transdermal DAILY nystatin-triamcinolone 100,000-0.1 unit/g-% 1 appl topical BID 10 days sennosides (senna) 17.2 mg (2 x 8.6 mg) PO BEDTIME 30 days trazodone 50 mg PO BEDTIME PRN 30 days Tobacco use date assessed: 02/16/25 Dental Screening Dental Screen Date: 12/29/24 Did you have a dental visit in the last 12 months?: Yes Did you have a dental problem in the last 6 months where you did not have access to dental care?: No Was dental information given to patient?: Patient has dentist HPI cigarette scensation HPI Details 54-year-old male [facility] for follow-up on smoking cessation. Currently on nicotine patch 14 mg applied once a day and does remove it at night. Patient states that despite the patch he is still has his nicotine cravings and still smokes approximately 8 cigarettes a day. Denies having any palpitations, no headache, no itching over application site, no chest pain reported with using the patch. Has depression with anxiety currently taking escitalopram 10 mg once a day and trazodone at night. Reports that medicine helps but not completely, would like to be referred again to see a psychiatrist. Was seeing one in the past. [facility] Medical History History of adenomatous polyp Impaired fasting glucose Nicotine dependence, cigarettes, uncomplicated Elevated liver enzymes Moderate persistent asthma Hypertriglyceridemia Depression with anxiety ERMIAS (obstructive sleep apnea) Surgical History No pertinent past surgical history Family History Sister Mental health disorder Social History Housing: Apartment Patient Tobacco Use Status: Current everyday Tobacco user Tobacco use type: Cigarette Cigarette Packs Per Day: 0.5 Cigarettes Per Day: 8 Years Smoked: (onset 16yo, 1/2-3/4ppd x 35yrs, 20pyh) Packs Per Year: 0 Packs per year/per ci.00 e-Cigarette/Vaping Use: Never Used service: No Current occupational status: employed 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 1. Little interest or pleasure in doing things: several days 2. Feeling down, depressed, or hopeless: several days 3. Trouble falling or staying asleep, or sleeping too much: several days 4. Feeling tired or having little energy: several days 5. Poor appetite or overeating: not at all 6. Feeling bad about yourself - or that you are a failure or have let yourself or your family down: not at all 7. Trouble concentrating on things, such as reading the newspaper or watching television: not at all 8. Moving or speaking so slowly that other people could have noticed. Or the opposite - being so fidgety or restless that you have been moving around a lot more than usual: not at all 9. Thoughts that you would be better off or of hurting yourself in some way: not at all Total score: 4 Depression Screening Interpretation: Positive (Currently on escitalopram, requesting referral for counseling) Depression Screening Follow-up: Existing condition, In treatment and Community Mental Health Worker F/U Depression Screening Done: Yes 30603 - PHQ-9 Billing: Yes Source: Developed by Drs. Ravinder Perry, Zeinab Otero, Ac Freitas and colleagues, with an educational judah from [employer]. Thrive Questionnaire Date Thrive assessed: 11/22/24 ANNITA-7 AMB Questionnaire ANNITA-7 Date ANNITA - 7 assessed: 02/16/25 Feeling nervous, anxious, or on edge: 1 = Several days Not being able to stop or control worryin = Several days Worrying too much about different things: 1 = Several days Trouble relaxin = Not at all Being so restless that it is hard to sit still: 0 = Not at all Becoming easily annoyed or irritable: 1 = Several days Feeling afraid as if something awful might happen: 0 = Not at all Total ANNITA-7 score (0-4 normal; 5-9 mild; 10-14 moderate; 15-21 severe): 4 Source: Developed by Drs. Ravinder Perry, Zeinab Otero, Ac Freitas and colleagues, with an educational judah from [employer]. ANNITA-7 Assessment Billing ANNITA-7 Assessment Tool: ANNITA-7 Assessment 90147 Review of Systems Const Reports daytime sleepiness, Reports difficulty sleeping and Denies night sweats Eyes Details: Uses reading glasses ENT Reports no additional complaints Card Denies chest pain, Denies dyspnea and Denies dyspnea on exertion Resp Denies cough, Denies dyspnea, Denies dyspnea on exertion and Denies wheezing GI Denies abdominal pain and Denies change in bowel habits Reports no additional complaints Musc Denies no additional complaints Skin/Breast Denies lesions and Denies rash Neuro Denies Neuro-related abnormal movements Psych Reports as per HPI Endo Reports no additional complaints Kevin/Lymph Denies easy bleeding and Denies lymphadenopathy Aller/Immun Reports no additional complaints and Denies wheezing Physical exam (Primary Care) Tobacco/Smoking Status: Tobacco use Status Tobacco use date assessed 02/16/25 02/16/25 08:35 Patient Tobacco Use Status Current everyday Tobacco 02/16/25 08:35 Tobacco use type Cigarette 02/16/25 08:35 e-Cigarette/Vaping Use Never Used 02/16/25 08:35 PHQ-9: PHQ-9 Score PHQ-9: Total score 4 02/16/25 08:57 Depression Screening Interpretation: Positive (Currently on escitalopram, requesting referral for counseling) Depression Screening Follow-up: Existing condition, In treatment and Community Mental Health Worker F/U Thrive Assessment: Date of Thrive Assessment Date Thrive assessed 11/22/24 02/16/25 08:35 Telehealth Telehealth Telehealth Platform: [facility] Location of provider rendering services: practice address Location of patient: address on file Patient Identification confirmed using: Name, : Yes Telehealth method: video Patient verbally consented to treatment: Yes Patient verbally consented to billing insurance company: Yes Patient informed of any privacy concerns related to visit: Yes Minutes spent on Phone/Video with Pt.: 15 Coding Level of Care Code Tele Est Pt Level 4 (91711) Diagnoses Encounter for smoking cessation counseling Z71.6 Depression with anxiety F41.8 Cigarette smoker motivated to quit F17.210 Additional Codes ANNITA-7 Assessment Billing - ANNITA-7 Assessment Tool: ANNITA-7 Assessment 75522 ([id number]) PHQ-9 - 12155 - PHQ-9 Billing: Yes ([id number]) Assessment & Plan Assessment & Plan (1) Encounter for smoking cessation counseling: Code(s): Z71.6 - Tobacco abuse counseling Plan: Increased dose of nicotine 21 mg/ patch , apply as directed, remove patch at bedtime, do not smoke while using patch. Discuss side effects that might occur when using the patch which may include palpitations, headache, itching rash at application site. Stop using patch if this occurs and to inform us,. See him back for follow-up 4 weeks after starting nicotine patch (2) Depression with anxiety: Code(s): F41.8 - Other specified anxiety disorders Category: Medical Plan: Referred to our mental health coordinator for assistance in getting in to be seen by psychiatrist. In the meantime will continue on escitalopram and trazodone (3) Cigarette smoker motivated to quit: Code(s): F17.210 - Nicotine dependence, cigarettes, uncomplicated Plan: Increased dose of nicotine patch 21 mg per patch apply as directed will see him back for follow-up in 4 weeks after starting new dose. Patient can only come on a Medications: New nicotine Rotate sites of application on upper chest and upper arm, remove at bedtime 1 patch transdermal DAILY 28 ea 0RF F17.210 - Nicotine dependence, cigarettes, uncomplicated Discontinued nicotine Apply to clean areas on upper chest outer arm and upper back, rotate sites, remove patch at night before sleeping Discontinued Reason: Doctor's Order 1 patch transdermal DAILY 28 ea 1RF F17.210 - Nicotine dependence, cigarettes, uncomplicated
--- OUTSIDE RECORDS SUMMARY | 2025-02-16 08:34 | XMS_ITS | Clinical Summary ---
Author Organization [facility] ity Address [address] [place] [address] Care Team Providers Care Date Pitter Name Role Phone Unavailable Primary Care Provider [...] ry of pericarditis; COMMENT: Aug 2017 f/u [facility] Family History Medical History Relation Name [...] Vaccines (1 of 2) 12/04/2021 COVID-19 Vaccine (1 - 2023-2 5 season) 2024 Depression Screening 07/05/2024 Influenza Vaccine (#1) 2025 HIB Vaccines Aged Out No longer eligi [...]
== END 2025-02-16 09:11 | disposition home or self-care (01) ==
LOC: HO.HMCC 08:28
PROVIDERS: PCP Internal Medicine; Visit Provider Internal Medicine
DX: Z71.6 Tobacco abuse counseling (principal); F41.8 Other specified anxiety disorders; F17.210 Nicotine dependence, cigarettes, uncomplicated

== ENCOUNTER → 2025-02-16 08:28 | Outpatient (BNVA) | payer OTHER, SELFPAY | PROVIDERS: PCP Internal Medicine; Visit Provider Internal Medicine | DX: F41.8 Other specified anxiety disorders (principal); F17.210 Nicotine dependence, cigarettes, uncomplicated; Z71.6 Tobacco abuse counseling | CPT/HCPCS: 96127 ==

== ENCOUNTER 2025-04-05 14:22 | Outpatient (AMB) | payer OTHER, SELFPAY ==
--- NOTE | 2025-04-05 14:33 | MHC.PC.OV ---
Vital Signs 04/05/25 14:45 Height 5 ft 6 in Weight 186 lb BMI 30.0 BP 112/70 Blood Pressure Location Rt brachial Position Sitting Respiration 18 Pulse 70 Pulse Source Pulse Oximeter Temp 98.7 F Temp Source Temporal Artery Scan Pulse Oximetry (%) 96 Oxygen Delivery Method Room Air Intake Visit Reasons: transferring from [facility] - both he and his are Search Analyst Required: Yes Search Analyst Name: Zoë- will interpret Accompanied by: Spouse Allergies No Known Allergies (No Known Allergies*) Allergy (Verified 04/05/25 14:33) Medication List - Last Reconciled 04/05/25 by Johnson Schultz MD albuterol sulfate 90 mcg/actuation (Ventolin HFA) 2 puffs inhalation QID PRN 30 days CPAP (CPAP Machine/Device) As directed escitalopram oxalate 10 mg PO DAILY nicotine 1 patch transdermal DAILY nystatin-triamcinolone 100,000-0.1 unit/g-% 1 appl topical BID 10 days sennosides (senna) 17.2 mg (2 x 8.6 mg) PO BEDTIME 30 days trazodone 50 mg PO BEDTIME PRN 30 days Tobacco use date assessed: 02/16/25 Dental Screening Dental Screen Date: 12/29/24 HPI HPI Comments History of Present Illness Details The patient is a 54-year-old male presenting with issues related to the transfer of care for medication management and assistance with medical documentation. The primary reason for the visit is the patient's dissatisfaction with the previous healthcare provider's response to filling out necessary paperwork related to his anxiety, depression, and obstructive sleep apnea (ERMIAS) conditions. This resulted in adverse outcomes, including the loss of a housing appointment. The patient experiences anxiety and depression, previously managed by the same physician who prescribed citalopram 10 mg for anxiety and depression, and trazodone to aid sleep due to ERMIAS. It was noted that the former healthcare provider did not refer the patient to a psychiatrist, despite these prescriptions being provided. The patient's obstructive sleep apnea is managed with the use of a CPAP machine at night, indicating usage compliance. The patient experiences difficulty attending appointments without assistance due to cognitive concerns, including forgetfulness?an issue necessitating accompanying support for appointments. Additionally, the patient reported longstanding asthma, which is compounded by a long history of tobacco use, beginning at age 16, and currently smoking approximately 8 cigarettes a day. He has expressed attempts to quit but has been inconsistent with cessation aid utilization, like nicotine patches. Medical History: - Anxiety - Depression - Obstructive Sleep Apnea - Asthma - Hyperlipidemia Medications: - Citalopram 10 mg daily for anxiety and depression. - Trazodone at night for sleep. Diagnostic Results: - Labs indicate high LDL cholesterol: 109. - A1c results from 2022 are good with previous reports of being high. - Liver enzymes previously noted as high. - Recent colonoscopy completed with no specifics provided by the patient. Social: - Tobacco use: Smoking since age 16, approximately 8 cigarettes daily. - Housing issues and lack of cooperation from the previous healthcare provider with necessary documentation. - Being supported in daily living and appointment adherence due to forgetfulness and possible cognitive support needs. [facility] Medical History (Updated 04/05/25 @ 15:21 by Johnson Schultz MD) Hyperlipidemia History of adenomatous polyp Impaired fasting glucose Nicotine dependence, cigarettes, uncomplicated Elevated liver enzymes Moderate persistent asthma Hypertriglyceridemia Depression with anxiety ERMIAS (obstructive sleep apnea) Surgical History No pertinent past surgical history Family History Sister Mental health disorder Social History Housing: Apartment Patient Tobacco Use Status: Current everyday Tobacco user Tobacco use type: Cigarette Cigarette Packs Per Day: 0.5 Cigarettes Per Day: 8 Years Smoked: (onset 16yo, 1/2-3/4ppd x 35yrs, 20pyh) e-Cigarette/Vaping Use: Never Used service: No Current occupational status: unemployed Cognitive needs: No Hearing needs: No Vision needs: No Questionnaire Thrive Questionnaire Date Thrive assessed: 11/22/24 I am a: Patient What is your living situation today?: I have a steady place to live Within the past 12 months, did the food you bought not last and you didn't have the money to get more?: I choose not to answer this question Within the past 12 months, did you worry whether your food would run out before you got money to buy more?: I choose not to answer this question Do you have trouble paying for medicines?: Yes Do you have trouble getting transportation to medical appointments?: No Do you have trouble paying your heating and electricity bill?: No Do you have trouble taking care of your child, family member or friend?: No Do you have trouble with day-to-day activities such as bathing, preparing meals, shopping, managing finances, etc.?: I choose not to answer this question Are you currently unemployed and looking for a job?: No Are you interested in more education?: No Please select the resources that you would like help with: Paying for medicine Currently or been in a relationship where the following occur: I choose not to answer THRIVE Score: 0 AUDIT C Alcohol Use Questionnaire (AUDIT-C) 1. How often do you have a drink containing alcohol?: Never 3. How often do you have six or more drinks on one occasion?: Never Total Score: 0 ANNITA-7 AMB Questionnaire ANNITA-7 Date ANNITA - 7 assessed: 02/16/25 Source: Developed by Drs. Ravinder Perry, Zeinab Otero, Ac Freitas and colleagues, with an educational judah from [employer]. Review of Systems Const Details: - Respiratory: Reports asthma and current smoking. - Neurological/Psychiatric: Reports anxiety, depression, and forgetfulness. - Sleep: Reports use of CPAP. All systems reviewed & are unremarkable except as reviewed in HPI and above Physical exam (Primary Care) Vital Signs: Last Vital Signs Temp 98.7 F 04/05/25 14:45 Pulse 70 04/05/25 14:45 Resp 18 04/05/25 14:45 BP 112/70 04/05/25 14:45 Pulse Ox 96 04/05/25 14:45 Oxygen Delivery Method Room Air 04/05/25 14:45 BMI result Body Mass Index 30.0 Tobacco/Smoking Status: Tobacco use Status Tobacco use date assessed 02/16/25 04/05/25 14:34 Patient Tobacco Use Status Current everyday Tobacco 04/05/25 14:34 Tobacco use type Cigarette 04/05/25 14:34 e-Cigarette/Vaping Use Never Used 04/05/25 14:34 Are you ready to quit: Yes Tobacco cessation counseling provided: Yes Relapse Prevention: discussed extending NRT Number of minutes spent counselin CPT code: 83307 - 4-10 Minutes Thrive Assessment: Date of Thrive Assessment Date Thrive assessed 11/22/24 04/05/25 14:34 Currently or been in a relationship where the following occur: I choose not to answer Const Other: General: +Alert and oriented, Well nourished, No acute distress. Eye: Pupils are equal, round and reactive to light, Intact accommodation, Extraocular movements are intact, Normal conjunctiva, Vision unchanged. HENT: Normocephalic, Atraumatic, Tympanic membranes are clear, Normal hearing, Oral mucosa is moist, No pharyngeal erythema, Ear canals patent. Respiratory: Lungs CTA bilaterally, No wheeze, Respirations are non-labored, History of asthma. Cardiovascular: Regular rate, Regular rhythm, S1 auscultated, S2 auscultated, No murmur, Good pulses equal in all extremities, Normal peripheral perfusion, No edema. Gastrointestinal: Soft, Non-tender, Non-distended, Normal bowel sounds, No organomegaly. Musculoskeletal: Normal range of motion, Normal strength, No tenderness, No swelling, No deformity, Normal gait. Integumentary: Warm, Dry, [place], Intact. Neurologic: Alert, Oriented, Normal sensory, Normal motor function, No focal defects, Cranial Nerves II-XII are grossly intact, Normal deep tendon reflexes. Psychiatric: Cooperative, Appropriate mood & affect, Normal judgment, History of anxiety and depression, Prescribed citalopram and trazodone. Coding Level of Care Code Est Pt Level 4 (60982) Complex EM visit Add On G2211 Diagnoses Elevated liver enzymes R74.8 ERMIAS (obstructive sleep apnea) G47.33 Nicotine dependence, cigarettes, uncomplicated F17.210 Moderate persistent asthma without complication J45.40 Asthma complication type: uncomplicated Depression with anxiety F41.8 Other hyperlipidemia E78.49 Hyperlipidemia type: other hyperlipidemia Additional Codes Vital Signs *Quality* - CPT code: 92302 - 4-10 Minutes ([id number]) Assessment & Plan Assessment & Plan (1) Elevated liver enzymes: Comment: And review labs has an elevation in ALT which could be secondary to fatty liver however hepatic serologies will be obtained for Code(s): R74.8 - Abnormal levels of other serum enzymes Category: Medical (2) ERMIAS (obstructive sleep apnea): Comment: - CPAP usage noted to be consistent, continue with current use. Code(s): G47.33 - Obstructive sleep apnea (adult) (pediatric) Category: Medical (3) Nicotine dependence, cigarettes, uncomplicated: Comment: (cory smoker - onset 16yo, 1/2-3/4ppd x 35yrs, 20pyh) Discussed with the patient and agreeable to quit smoking. Denied any and RT at this time. Currently following with lung cancer screening and due for LDCT Code(s): F17.210 - Nicotine dependence, cigarettes, uncomplicated Category: Medical (4) Moderate persistent asthma: Comment: Currently on albuterol inhaler p.r.n. with good control of symptoms Code(s): J45.40 - Moderate persistent asthma, uncomplicated Category: Medical Qualifiers: Asthma complication type: uncomplicated Qualified Code(s): J45.40 - Moderate persistent asthma, uncomplicated (5) Depression with anxiety: Comment: - Continue current prescription of citalopram 10 mg daily for anxiety and depression management. - Continue trazodone at night for sleep. - Referral to psychiatry for further evaluation and management discussed. Code(s): F41.8 - Other specified anxiety disorders Category: Medical (6) Hyperlipidemia: Comment: - Immediate commencement of treatment for high cholesterol discussed. Code(s): E78.5 - Hyperlipidemia, unspecified Category: Medical Qualifiers: Hyperlipidemia type: other hyperlipidemia Qualified Code(s): E78.49 - Other hyperlipidemia Plan: Health maintenance: - Discussed smoking cessation and use of nicotine patches for health improvement. - Annual lung cancer screening through low-dose CT scans due to smoking history. - Regular follow-up for asthma and medication assessment. - Counseled regarding consistent cholesterol management, including potential medication therapy. Patient was informed and verbally consented to the use of an ambient scribe for clinic note documentation during this visit. Plan I discussed the issues surrounding the prior healthcare provider's delay and absence in completing necessary documentation that led to the patient's missed opportunities and paperwork needed for housing and state services. We reviewed the patient's anxiety, depression, and ERMIAS treatment plan, agreeing on continued citalopram and trazodone usage while addressing the need for psychiatric consultation. I emphasized the importance of smoking cessation to manage asthma and overall health, detailing the risks of continued use leading to potential COPD development. We discussed starting cholesterol treatment due to elevated LDL levels and the importance of regular screenings to monitor ongoing health issues. I educated the patient on the health implications of non-compliance with treatment and lifestyle modifications. Addressing all concerns, I ensured a future action plan with appropriate referrals and treatments emphasizing compliance and follow-up. Orders: Orders Comprehensive Met. Panel Today J45.40 - Moderate persistent asthma, uncomplicated, Z76.89 - Persons encountering health services in other specified circumstances Hemoglobin A1c Today J45.40 - Moderate persistent asthma, uncomplicated, Z76.89 - Persons encountering health services in other specified circumstances Hepatitis A,B,C Profile Today J45.40 - Moderate persistent asthma, uncomplicated, Z76.89 - Persons encountering health services in other specified circumstances Vitamin D 25-OH Total Today J45.40 - Moderate persistent asthma, uncomplicated, Z76.89 - Persons encountering health services in other specified circumstances Complete Blood Count Auto Diff Today J45.40 - Moderate persistent asthma, uncomplicated, Z76.89 - Persons encountering health services in other specified circumstances HIV Ab/Ag Today J45.40 - Moderate persistent asthma, uncomplicated, Z76.89 - Persons encountering health services in other specified circumstances TSH reflex Free T4 Today J45.40 - Moderate persistent asthma, uncomplicated, Z76.89 - Persons encountering health services in other specified circumstances Syphilis Screen Today J45.40 - Moderate persistent asthma, uncomplicated, Z76.89 - Persons encountering health services in other specified circumstances Referrals Psychiatry Referral F41.8 - Other specified anxiety disorders Medications: New atorvastatin (Lipitor) 20 mg PO BEDTIME 90 tabs 0RF Patient Instructions: - Keep using your CPAP machine every night. - Continue taking citalopram and trazodone as prescribed. - Try to quit smoking; use the nicotine patches regularly. - Plan to see a psychiatrist for your anxiety and depression. - Start medication for cholesterol as discussed. - Follow up on all blood work and attend appointments.
[2025-04-05 14:45] VITALS: BP 112/70; PULSE 70; RESP 18; TEMP 37.1; O2SAT 96
--- OUTSIDE RECORDS SUMMARY | 2025-04-05 15:59 | XMS_ITS | Clinical Summary ---
Author Organization [facility] ity Address [address] [place] [address] Care Team Providers Care Tankage Supervisor Name Role Phone Unavailable Primary Care Provider [...] ry of pericarditis; COMMENT: Aug 2017 f/u [facility] Family History Medical History Relation Name [...] 08/04/2017 Zoster Vaccines (1 of 2) 12/04/2021 Depression Screening 07/05/2024 COVID-19 Vaccine (1 - 2023-2 5 season) 2025 Influenza Vaccine (#1) 2025 RSV Immunization Adult Patie nts (1 - 1-dose 75+ series) 12/04/2046 HIB Vaccines Aged Out No longer eligi [...]
== END 2025-04-05 15:25 | disposition home or self-care (01) ==
LOC: HO.HMCHD 14:23
PROVIDERS: PCP Student in an Organized Health Care Education/Training Program; Visit Provider Student in an Organized Health Care Education/Training Program
DX: R74.8 Abnormal levels of other serum enzymes (principal); G47.33 Obstructive sleep apnea (adult) (pediatric); F17.210 Nicotine dependence, cigarettes, uncomplicated; J45.40 Moderate persistent asthma, uncomplicated; F41.8 Other specified anxiety disorders; E78.49 Other hyperlipidemia

== ENCOUNTER 2025-04-05 14:22 | Outpatient (REF) | payer OTHER, SELFPAY ==
[2025-04-05 15:42] LABS: MANUAL DIFF FLAG NO
[2025-04-05 17:30] LABS: Hematocrit 42.8 % (42.0-52.0); Hemoglobin 14.3 g/dl (14.0-18.0); Imm Gran Abs Auto 0.03 X10*3/uL (0.00-0.03); Imm Gran Pct Auto 0.4 % (0.0-0.4); Lymphocytes Absolute Auto 3.3 X10*3/uL (1.2-4.9); Mean Corpuscular HGB Conc 33.4 g/dl (31.0-36.0); Mean Corpuscular Hemoglobin 29.4 pg (27.0-33.0); Mean Corpuscular Volume 88.1 fL (80.0-98.0); NRBC Abs Auto 0.000 X10*3/uL (0.0-0.012); NRBC Pct Auto 0.0 /100WBC (0.0-0.2); Platelet Count 239 X10*3/uL (160-400); Red Blood Count 4.86 X10*6/uL (4.60-5.80); White Blood Count 8.0 X10*3/uL (4.8-10.8)
[2025-04-05 18:01] LABS: Alanine Aminotransferase 35 U/L (0-40); Albumin Level 4.5 g/dL (3.5-5.0); Alkaline Phosphatase 61 U/L (39-117); Anion Gap 11 (12-20); Aspartate Amino Transferase 20 U/L (5-37); Blood Urea Nitrogen 17 mg/dL (9-16); Calcium 9.3 mg/dL (8.4-10.2); Carbon Dioxide 27 mmol/L (22-29); Chloride 108 mmol/L (96-108); Estimated Glomerular Filt Rate > 60; Potassium 3.7 mmol/L (3.3-5.1); Sodium 142 mmol/L (135-145); Total Protein 7.3 g/dL (6.5-8.0)
[2025-04-06 05:43] LABS: Syphilis Screen Nonreactive (Nonreactive)
[2025-04-06 05:52] LABS: HBS Num1 1.54 mIU/mL (0-7.99); HBc Num1 0.05 S/CO (0.00-0.79); HBsAGNum1 0.30 S/CO (0.00-0.99); HIV Num 1 0.05 S/CO (0.00-0.99); Hepatitis A Antibody IgM 0.14 Index (0-0.79); Hepatitis B Surface Antigen Negative (Negative); ~HepC Num1 0.12 S/CO (0.00-0.79); ~Hepatitis A Antibody IgM Nonreactive (Nonreactive); ~Hepatitis B Surface Antibody NONREACTIVE (Nonreactive); ~Hepatitis C Antibody Nonreactive (Nonreactive)
== END 2025-04-05 14:23 | disposition home or self-care (01) ==
LOC: HO.LAB 14:22
PROVIDERS: PCP Student in an Organized Health Care Education/Training Program; Visit Provider Student in an Organized Health Care Education/Training Program
DX: Z76.89 Persons encountering health services in other specified circumstances (principal); Z11.4 Encounter for screening for human immunodeficiency virus [HIV]; R74.8 Abnormal levels of other serum enzymes; G47.33 Obstructive sleep apnea (adult) (pediatric); J45.40 Moderate persistent asthma, uncomplicated; F41.8 Other specified anxiety disorders; E78.49 Other hyperlipidemia; F17.210 Nicotine dependence, cigarettes, uncomplicated; Z71.6 Tobacco abuse counseling
CPT/HCPCS: 36415; 80053; 82306; 83036; 84443; 85025; 86704; 86706; 86709; 86780; 86803; 87340; 87389; 99212